=== PATIENT | male | born 1980 | race Caucasian/White ===

== ENCOUNTER 2017-10-08 07:53 | Inpatient (IN) | payer OTHER ==
[2017-10-08] MEDS ORDERED: NA CHLORIDE 0.9% 1,000 ML ONE ×2 (08:28→11:17)
[2017-10-08] MEDS ORDERED: LIDOCAINE 1% MPF 2 ML AMPULE ONE (08:50)
--- NOTE | 2017-10-08 09:00 | RAD REPORT ---
EXAM DESCRIPTION: Gsisel Single View10/08/2017 8:41 am CLINICAL HISTORY: Chest pain COMPARISON: 2008 FINDINGS: The lungs appear clear of acute infiltrate. The heart is normal size IMPRESSION: No acute abnormalities displayed
[2017-10-08 09:09] LABS: Absolute Lymphocytes (CBC) 1.9 K/uL (0.7-4.9); Absolute Monocytes 1.8 K/uL (0.1-1.3); Absolute Neutrophil 17.2 K/uL (1.8-8.0); Basophils % 0.3 % (0-1.3); Eosinophils % 0.3 % (0-4.4); Hematocrit 44.4 % (39.6-49.0); Lymphocytes % 8.9 % (15.3-44.8); MCH 28.3 pg (27.0-35.0); MCV 83.2 fL (80-100); MPV 9.4 fL (7.6-11.3); Monocytes % 8.7 % (3.3-12.3); RBC Red Blood Cell Count 5.34 M/uL (4.33-5.43)
[2017-10-08 09:18] LABS: Bicarbonate 24 mEq/L (21-31); Glucose Level 313 mg/dL (65-120); Potassium 4.5 mEq/L (3.6-5.0); Sodium Level 131 mEq/L (135-145)
[2017-10-08 09:19] LABS: BUN Blood Urea Nitrogen 18 mg/dL (6-20)
--- NOTE | 2017-10-08 10:32 | EDPHYS ---
Physician Documentation [facility] Name: Yuniel Adkins Age: 37 yrs Sex: Male : 1980 Arrival Date: 10/08/2017 Time: 07:56 Bed 14 Private MD: Korey Up R ED Physician Edilson Urias HPI: 10/08 08:42 This 37 yrs old Male presents to ER via Ambulatory with complaints of Flu rn Symptoms, Insect Bite. 08:42 the patient presents with a swollen area of the buttocks. Description: erythematous, rn swollen, warm. Onset: The symptoms/episode began/occurred 1 week(s) ago. Possible cause(s): unknown. Severity of symptoms: At their worst the symptoms were mild, in the emergency department the symptoms are unchanged. The patient has not experienced similar symptoms in the past. Reports noticed swelling to right buttocks 1 week ago, + chills and fatigue, no fever, + dark urine and feels weak. Spoke with [employer] and gave him tamiflu for possible flu. . Historical: - Allergies: 08:10 No Known Allergies; ss - Home Meds: 08:10 Tamiflu 75 mg Oral cap 1 cap once daily [Active]; "supposed to be taking blood pressure ss medication and metformin for diabetes" currently not taking medications [Active]; - PMHx: 08:10 Hypertension; Diabetes - NIDDM; ss - PSHx: 08:10 back sx; ss - Immunization history:: Adult Immunizations unknown. - Social history:: Smoking status: Patient/guardian denies using tobacco. - Ebola Screening: : Patient denies exposure to infectious person Patient denies travel to an Ebola-affected area in the 21 days before illness onset. - Family history:: not pertinent. - Hospitalizations: : No recent hospitalization is reported. ROS: 08:42 Constitutional: Negative for fever and weight loss, Eyes: Negative for injury, pain, rn redness, and discharge, Neck: Negative for injury, pain, and swelling, Cardiovascular: Negative for chest pain, palpitations, and edema, Respiratory: Negative for shortness of breath, cough, wheezing, and pleuritic chest pain, Abdomen/GI: Negative for abdominal pain, nausea, vomiting, diarrhea, and constipation, Back: Negative for injury and pain, MS/Extremity: Negative for injury and deformity, Skin: + swelling and redness right buttocks along inferior gluteal cleft with approx 6cm surrounding erythema and fluctuance. Neuro: Negative for headache,numbness, tingling, and seizure. Exam: 08:46 Constitutional: This is a well developed, well nourished patient who is awake, alert, rn and in no acute distress. Head/Face: Normocephalic, atraumatic. Eyes: Pupils equal round and reactive to light, extra-ocular motions intact. Lids and lashes normal. Conjunctiva and sclera are non-icteric and not injected. Cornea within normal limits. Periorbital areas with no swelling, redness, or edema. ENT: dry MM Cardiovascular: tachycardic, regular, no murmur Respiratory: Lungs have equal breath sounds bilaterally, clear to auscultation and percussion. No rales, rhonchi or wheezes noted. No increased work of breathing, no retractions or nasal flaring. Abdomen/GI: Soft, non-tender, with normal bowel sounds. No distension or tympany. No guarding or rebound. No evidence of tenderness throughout. Skin: + swelling and redness right buttocks along inferior gluteal cleft with approx 6cm surrounding erythema and fluctuance. Extends near to but does not involve anus. MS/ Extremity: Pulses equal, no cyanosis. Neurovascular intact. Full, normal range of motion. Equal circumference. Neuro: Awake and alert, GCS 15, oriented to person, place, time, and situation. Cranial nerves II-XII grossly intact. Motor strength 5/5 in all extremities. Sensory grossly intact. Cerebellar exam normal. Normal gait. Vital Signs: 08:10 BP 174 / 97; Pulse 116; Resp 16; Temp 98.3(TE); Pulse Ox 99% on R/A; Weight 120.2 kg; ss Height 5 ft. 11 in. (180.34 cm); Pain 6/10; 10:20 BP 162 / 88; Pulse 92; Resp 16; Temp 98.3; Pulse Ox 100% on R/A; Pain 6/10; sg 08:10 Body Mass Index 36.96 (120.20 kg, 180.34 cm) Lamar Coma Score: 10:20 Eye Response: spontaneous(4). Verbal Response: oriented(5). Motor Response: obeys sg commands(6). Total: 15. MDM: 08:11 Patient medically screened. rn 10:30 Differential diagnosis: abscess, cellulitis. Data reviewed: vital signs, nurses notes, external auditor test result(s), radiologic studies, plain films, and as a result, I will admit patient. Counseling: I had a detailed discussion with the patient and/or guardian regarding: the historical points, exam findings, and any diagnostic results supporting the discharge/admit diagnosis, lab results, radiology results, the need for further work-up and treatment in the hospital. Response to treatment: the patient's symptoms have mildly improved after treatment, and as a result, I will admit patient. Admission orders: after a detailed discussion of the patient's condition and case, the admit orders are written by me. ED course: Consulted dr acosta regarding abscess and cellulitis of right buttocks, need for admission, and hyperglycemia, will eval in ER if needs OR drainage. . 10/08 08:23 Order name: CBC with Diff rn 10/08 08:23 Order name: Basic Metabolic Panel; Complete Time: 09:21 rn 10/08 08:23 Order name: Blood Culture Adult (2) rn 10/08 08:23 Order name: Ketone, Serum; Complete Time: 09:21 rn 10/08 09:22 Order name: Manual Differential EDMS 10/08 10:49 Order name: Basic Metabolic Panel EDMS 10/08 08:24 Order name: XRAY Chest (1 view); Complete Time: 09:10 rn 10/08 10:49 Order name: Basic Metabolic Panel EDMS 10/08 10:49 Order name: CBC with Automated Diff EDMS 10/08 10:49 Order name: CBC with Automated Diff EDMS 10/08 08:23 Order name: IV Start; Complete Time: 08:24 rn 10/08 08:23 Order name: Glucose Level; Complete Time: 08:24 rn 10/08 08:23 Order name: Incision \\T\\ Drainage Setup; Complete Time: 08:24 rn 10/08 10:48 Order name: NPO; Complete Time: 11:01 rn 10/08 10:49 Order name: CONS Physician Consult EDMS 10/08 10:49 Order name: NPO EDMS Administered Medications: 08:53 Drug: NS 0.9% 1000 ml Route: IV; Rate: 1000 ml; Site: right antecubital; sg 08:54 Drug: Lidocaine (1 %) 1 vials {Note: medication administered by for I/D.} sg Volume: 20 ml; Route: Infiltration; 11:00 Drug: Zosyn 3.375 grams Route: IVPB; Infused Over: 60 mins; Site: right antecubital; sg 12:00 Follow up: Response: No adverse reaction; IV Status: Completed infusion sg Disposition: 10/08/17 10:32 Hospitalization ordered by Korey Up for Inpatient Admission. Preliminary diagnosis are Gluteal Abscess, Hyperglycemia, unspecified, Cellulitis of buttock. - Bed requested for Telemetry/MedSurg (Inpatient). - Status is Inpatient Admission. sg - Condition is Stable. - Problem is an ongoing problem. - Symptoms have improved. UTI on Admission? No Signatures: Dispatcher [employer] EDMS Salvador Owens RN RN sg Nieto, Roman, MD MD rn Smirch, Shelby, RN RN ss Corrections: (The following items were deleted from the chart) 08:46 08:42 Constitutional: Negative for fever and weight loss, Eyes: Negative for injury, rn pain, redness, and discharge, Neck: Negative for injury, pain, and swelling, Cardiovascular: Negative for chest pain, palpitations, and edema, Respiratory: Negative for shortness of breath, cough, wheezing, and pleuritic chest pain, Abdomen/GI: Negative for abdominal pain, nausea, vomiting, diarrhea, and constipation, Back: Negative for injury and pain, MS/Extremity: Negative for injury and deformity, Skin: + swelling and redness right buttocks along inferior gluteal cleft with approx 6cm surrounding erythema and fluctuance. Neuro: Negative for headache,numbness, tingling, and seizure, rn 09:44 08:46 Constitutional: This is a well developed, well nourished patient who is awake, rn alert, and in no acute distress. Head/Face: Normocephalic, atraumatic. Eyes: Pupils equal round and reactive to light, extra-ocular motions intact. Lids and lashes normal. Conjunctiva and sclera are non-icteric and not injected. Cornea within normal limits. Periorbital areas with no swelling, redness, or edema. ENT: dry MM Cardiovascular: tachycardic, regular, no murmur Respiratory: Lungs have equal breath sounds bilaterally, clear to auscultation and percussion. No rales, rhonchi or wheezes noted. No increased work of breathing, no retractions or nasal flaring. Abdomen/GI: Soft, non-tender, with normal bowel sounds. No distension or tympany. No guarding or rebound. No evidence of tenderness throughout. Skin: + swelling and redness right buttocks along inferior gluteal cleft with approx 6cm surrounding erythema and fluctuance. MS/ Extremity: Pulses equal, no cyanosis. Neurovascular intact. Full, normal range of motion. Equal circumference. Neuro: Awake and alert, GCS 15, oriented to person, place, time, and situation. Cranial nerves II-XII grossly intact. Motor strength 5/5 in all extremities. Sensory grossly intact. Cerebellar exam normal. Normal gait. rn 11:12 10:32 Hospitalization Ordered by Korey Up MD for Inpatient Admission. Preliminary sg diagnosis is Gluteal Abscess; Hyperglycemia, unspecified; Cellulitis of buttock. Bed requested for Telemetry/MedSurg (Inpatient). Status is Inpatient Admission. Condition is Stable. Problem is an ongoing problem. Symptoms have improved. UTI on Admission? No. rn
--- NOTE | 2017-10-08 10:32 | ER ---
Nurse's Notes [facility] Name: Yuniel Adkins Age: 37 yrs Sex: Male : 1980 Arrival Date: 10/08/2017 Time: 07:56 Bed 14 Private MD: Korey Up R Diagnosis: Gluteal Abscess;Hyperglycemia, unspecified;Cellulitis of buttock Presentation: 10/08 08:06 Presenting complaint: Patient states: intermittent fatigue, chills and body aches x 2 ss days. Pt reports he saw a [facility] that gave him tamiflu for possible flu. Pt states, "he told me if it wasn't better in a few days to come be seen." Pt also reports abscess to gluteal cleft x 1 week. Transition of care: patient was not received from another setting of care. Onset of symptoms is unknown. Risk Assessment: Do you want to hurt yourself or someone else? Patient reports no desire to harm self or others. Initial Sepsis Screen: Does the patient meet any 2 criteria? HR > 90 bpm. Does the patient have a suspected source of infection? Yes: Skin breakdown/wound. Care prior to arrival: None. 08:06 Method Of Arrival: Ambulatory ss 08:06 Acuity: LUKE 4 ss Triage Assessment: 08:20 Bite description: unsure if bitten by anything, but reports a "bump that is red and hot sg to touch". General: Appears in no apparent distress. comfortable, well groomed, well developed, well nourished, Behavior is calm, cooperative, appropriate for age. Historical: - Allergies: 08:10 No Known Allergies; ss - Home Meds: 08:10 Tamiflu 75 mg Oral cap 1 cap once daily [Active]; "supposed to be taking blood pressure ss medication and metformin for diabetes" currently not taking medications [Active]; - PMHx: 08:10 Hypertension; Diabetes - NIDDM; ss - PSHx: 08:10 back sx; ss - Immunization history:: Adult Immunizations unknown. - Social history:: Smoking status: Patient/guardian denies using tobacco. - Ebola Screening: : Patient denies exposure to infectious person Patient denies travel to an Ebola-affected area in the 21 days before illness onset. - Family history:: not pertinent. - Hospitalizations: : No recent hospitalization is reported. Screenin:00 Abuse screen: Denies threats or abuse. Denies injuries from another. Nutritional sg screening: No deficits noted. Tuberculosis screening: No symptoms or risk factors identified. Never had TB. Fall Risk None identified. Assessment: 08:20 General: Appears in no apparent distress. comfortable, well groomed, well developed, sg well nourished, Behavior is calm, cooperative, appropriate for age. Pain: Complains of pain in left gluteal, left gluteal fold Pain does not radiate. Quality of pain is described as tender. Neuro: Level of Consciousness is awake, alert, obeys commands, Oriented to person, place, time, situation, Speech is normal, Facial symmetry appears normal. Cardiovascular: Heart tones S1 S2 present Capillary refill is brisk in bilateral fingers Patient's skin is warm and dry. Chest pain is denied. Respiratory: Airway is patent Respiratory effort is even, unlabored, Respiratory pattern is regular, symmetrical, Breath sounds are clear Denies cough, shortness of breath labored breathing, pain with respiration, pain with cough, pain with movement, air hunger. GI: Abdomen is round non-distended, obese, Bowel sounds present X 4 quads. Reports nausea. : No signs and/or symptoms were reported regarding the genitourinary system. EENT: No signs and/or symptoms were reported regarding the EENT system. Derm: Skin is intact, is healthy with good turgor, Skin is dry, Skin is pink, warm \\T\\ dry. Skin temperature is warm Abscess located on left gluteal fold is quarter sized, has no drainage, is hot to touch, is red, is raised. Musculoskeletal: No signs and/or symptoms reported regarding the musculoskeletal system. 10:00 Reassessment: Patient appears in no apparent distress at this time. Patient and/or sg family updated on plan of care and expected duration. Pain level reassessed. Patient is alert, oriented x 3, equal unlabored respirations, skin warm/dry/pink. awaiting dispo, awaiting new orders, pt reports nausea is now gone. 11:04 Reassessment: at bedside evaluating pt at this time. sg Vital Signs: 08:10 BP 174 / 97; Pulse 116; Resp 16; Temp 98.3(TE); Pulse Ox 99% on R/A; Weight 120.2 kg; ss Height 5 ft. 11 in. (180.34 cm); Pain 6/10; 10:20 BP 162 / 88; Pulse 92; Resp 16; Temp 98.3; Pulse Ox 100% on R/A; Pain 6/10; sg 08:10 Body Mass Index 36.96 (120.20 kg, 180.34 cm) ss Lamar Coma Score: 10:20 Eye Response: spontaneous(4). Verbal Response: oriented(5). Motor Response: obeys sg commands(6). Total: 15. ED Course: 07:56 Patient arrived in ED. sb2 07:57 Korey Up MD is Private Physician. sb2 08:07 Triage completed. ss 08:10 Arm band placed on right wrist. ss 08:11 Edilson Urias MD is Attending Physician. rn 08:15 Initial lab(s) drawn, by me, sent to lab. First set of blood cultures drawn by me. sg 08:17 Salvador Owens, RN is Primary Nurse. sg 08:30 Assist provider with I \\T\\ D: of an abscess on Set up I\\T\\D tray. Second set of blood sg cultures drawn by me. Inserted saline lock: 20 gauge in right antecubital area, using aseptic technique. Blood collected. 08:40 X-ray completed. Portable x-ray completed in exam room. Patient tolerated procedure kp1 well. 08:41 XRAY Chest (1 view) In Process Unspecified. EDMS 09:00 Patient has correct armband on for positive identification. Bed in low position. Call sg light in reach. Side rails up X2. telemetry monitor on. Pulse ox on. NIBP on. 09:21 Notified ED physician of a critical lab result(s). WBC-21. sv 10:31 Korey Up MD is Hospitalizing Provider. rn 11:00 Patient admitted, IV remains in place. intact, No redness/swelling at site. Pressure sg dressing applied. Administered Medications: 08:53 Drug: NS 0.9% 1000 ml Route: IV; Rate: 1000 ml; Site: right antecubital; sg 08:54 Drug: Lidocaine (1 %) 1 vials {Note: medication administered by for I/D.} sg Volume: 20 ml; Route: Infiltration; 11:00 Drug: Zosyn 3.375 grams Route: IVPB; Infused Over: 60 mins; Site: right antecubital; sg 12:00 Follow up: Response: No adverse reaction; IV Status: Completed infusion Outcome: 10:32 Decision to Hospitalize by Provider. rn 11:00 Admitted to OR accompanied by nurse, via stretcher, with chart. sg 11:00 Condition: stable 11:00 Instructed on the need for admit, safety practices, Demonstrated understanding of instructions. 11:12 Patient left the ED. sg Signatures: Dispatcher [employer] Tamara Fuentes RN RN sv Gay, Steven, RN RN sg Edilson Urias MD MD rn Smirch, Shelby, RN RN ss Poole, Kathy kp1 Marisabel Major sb2 Corrections: (The following items were deleted from the chart) 08:16 08:06 Initial Sepsis Screen: Does the patient meet any 2 criteria? No. Patient's ss initial sepsis screen is negative. Does the patient have a suspected source of infection? Yes: Skin breakdown/wound ss
[2017-10-08] MEDS ORDERED: ACETAMINOPHEN 500 MG TAB PO PRN (10:45)
[2017-10-08] MEDS ORDERED: MORPHINE 4 MG/ML SYR IV PRN (10:45)
[2017-10-08] MEDS ORDERED: ONDANSETRON 4 MG/2 ML VIAL IV PRN (10:45)
[2017-10-08] MEDS ORDERED: PIPER/TAZO/NS 3.375gm 3.375 GM/100 ML BAG ONE (10:49)
[2017-10-08] MEDS ORDERED: INSULIN -REGULAR HUMAN 50 UNIT/0.5 ML ML ONE (10:49)
[2017-10-08] MEDS ORDERED: VANCOMYCIN 1 GM/250 ML BAG ONE (10:50)
[2017-10-08] MEDS ORDERED: FENTANYL CITR 100 MCG/2 ML ONE (11:11)
[2017-10-08] MEDS ORDERED: LIDOCAINE 1% MPF 5 ML VIAL ONE (11:11)
[2017-10-08] MEDS ORDERED: PROPOFOL 200 MG/20 ML VIAL IV ONE (11:11)
[2017-10-08] MEDS ORDERED: MIDAZOLAM HCL 2 MG/2 ML INJ ONE (11:11)
[2017-10-08] MEDS ORDERED: BUPIVACA 0.25%/EPI 0.0005%/PF 30 ML VIAL ONE (11:16)
[2017-10-08] MEDS ORDERED: ONDANSETRON HCL 40 MG/20 ML VIAL ONE (11:46)
--- NOTE | 2017-10-08 11:47 | P.OP ---
Contract Analyst: Jose Vela Preoperative diagnosis: Right Buttock Abscess Postoperative diagnosis: Right Buttock Abscess Primary procedure: incision and drainage of Right Buttock Abscess Anesthesia: GETA + Local Estimated blood loss: <5cc Specimen: cultures sent Findings: multiloculated abscess ~5 cm Complications: None Transferred to: Recovery Room Condition: Good
[2017-10-08] MEDS ORDERED: VANCOMYCIN/NS 1 gm 1 GM/250 ML BAG IV ONE (12:00)
[2017-10-08 12:18] LABS: Blood Morphology Comment NOT SEEN (NOT SEEN); Platelet Estimate ADEQ
--- NOTE | 2017-10-08 13:32 | OP ---
Date of Procedure: 10/08/2017 Surgeon: Ed Brown MD, Site Controller: Delores Adame. Preoperative Diagnosis: Right buttock abscess. Postoperative Diagnosis: Right buttock abscess. Procedure Performed: Incision and drainage, right buttock abscess. Anesthesia: General endotracheal plus local with 0.25% Marcaine with epinephrine. Estimated Blood Loss: Less than 5 cc. Specimen: Culture sent, both aerobic and anaerobic speciations. Findings: Multiloculated abscess approximately 5 cm inside of the right buttock. Complications: None. Disposition: Transferred to recovery room in good condition. Procedure In Detail: After informed was obtained, the patient was brought to the operating room, pre pped and draped in the usual sterile fashion. After adequate anesthesia was achieved, an area of the right buttock was anesthetized with 0.25% Marcaine with epinephrine, sharply incised for approximate ly 3-4 cm, and immediately purulent fluid was encountered. This was cultured at this time and I lisbeth de examined the area and found it to be multiloculated abscess approximately 5 cm in size. After this was complete, the all loculations were removed. The area was copiously irrigated. Hemostasis w as achieved quite easily without any additional hemostatic maneuvers. The area was irrigated and dri ed once again and packed with half-inch iodoform packing. Sterile dressing was placed over top. The patient tolerated the procedure well without evidence of complication and transferred to the PACU in good condition. All counts were correct at the end of the case. KEREN/EILEEN Voice ID: [id number] Report ID: [id number]
[2017-10-08] MEDS ORDERED: Morphine 2 MG/2 ML SYR IV PRN (13:59)
[2017-10-08] MEDS: D5.45NS W/KCL 20MEQ 1,000 ML IV SCH ×2 (15:20→21:00)
--- NOTE | 2017-10-08 15:32 | CON ---
Date of Consultation: 10/08/2017 Brief History Of Present Illness: The patient is a 37-year-old male who presents with approximately 3-day history of swelling in his right gluteal region abutting the perianal area. There is a normal bridge of tissue between the anus and this abscess, however, on his right gluteus, but it is near the ischial tuberosity. He has not had similar episodes before in the past. It got progressively worse , more tender, and as such he came to the emergency room. He has no constitutional complaints. No o ther complaints or symptoms at this time other than the above described. Past Medical History: Significant for hypertension, diabetes. Past Surgical History: He has had spinal stenosis, repair of his lumbar spine. Allergies: NO KNOWN DRUG ALLERGIES. Medications: He denies taking any medications. Social History: He denies smoking, alcohol, recreational drug use. He works for the [employer]. Family History: Reviewed and noncontributory. Review of Systems: A 10-point review of systems other than HPI, denies. Physical Examination: At the time of my examination General: He is awake, alert, oriented Psychiatric: Appropriate. Conversive. HEENT: Normocephalic sclerae anicteric. Mucous membranes moist, oropharynx clear. Neck: Supple. No JVD. Chest: Normal expansion and excursion. Cardiovascular: Regular rate and rhythm Pulmonary: Clear to auscultation bilaterally. Abdomen: Soft, nontender, nondistended. Focused examination of the buttock area shows a fluctuant a bscess of the right buttock near the ischial tuberosity. There is surrounding cellulitis to this are a and induration. The remainder of the examination is essentially normal. Laboratory Data: Reveals a white blood cell count of 21.0, hemoglobin is 15.0, hematocrit of 44.4, p latelet count is 294, neutrophils are 81%. His sodium is 131, potassium 4.5, chloride 96, carbon latoya xide 24, BUN 18, creatinine 0.9, glucose is 313. He had a chest x-ray, which showed no acute abnorma lities. Assessment And Plan: This is a 37-year-old male who comes in with signs and symptoms of right buttoc k abscess. 1.IV fluid hydration. 2.Antibiotic coverage with Zosyn and vancomycin. 3.I have explained the risks, benefits, and alternatives of incision and drainage of this abscess an d need for ongoing wound care after drainage of this abscess is completed. I have explained all the risks, benefits, and alternatives including, but not limited to bleeding, infection, damage to the fernandes rrounding tissue need for further operating procedures as descried above. The patient agrees to proce ed as indicated. Thank you for this interesting consult. VIC Voice ID: [id number] Report ID: [id number]
[2017-10-08] MEDS: PIPER/TAZO/NS 3.375gm 3.375 GM/100 ML BAG IVPB SCH (16:15)
[2017-10-08] MEDS ORDERED: D50W 25 GM/50 ML SYRINGE IV PRN (16:47)
[2017-10-08] MEDS ORDERED: GLUCAGON 1 MG/VIAL IM PRN (16:47)
[2017-10-08] MEDS: METFORMIN HCL 500 MG TAB PO SCH (17:07)
[2017-10-08] MEDS: INSULIN -REGULAR HUMAN 50 UNIT/0.5 ML ML SQ SCH (21:42)
[2017-10-08 23:03] LABS: Urine Appearance CLEAR; Urine Bilirubin NEGATIVE (NEG); Urine Blood 2+ (NEG); Urine Color YELLOW; Urine Glucose 3+ (NEG); Urine Protein NEGATIVE (NEG); Urine Specific Gravity 1.025 (1.005-1.030); Urine pH 5.5 (5.0-7.0)
[2017-10-08 23:05] LABS: Urine Microscopic Reflex ORDER UMIC
[2017-10-08 23:13] LABS: Urine Bacteria <20 /HPF (NONE SEEN); Urine Culture Reflex Order NOT NEEDED; Urine RBC <5 /HPF (NONE SEEN)
[2017-10-09] MEDS: VANCOMYCIN 2 GM in NA CHLORIDE 0.9% 500 ML IVPB SCH ×2 (00:17→12:17)
[2017-10-09] MEDS: PIPER/TAZO/NS 3.375gm 3.375 GM/100 ML BAG IVPB SCH ×2 (01:59→08:42)
[2017-10-09] MEDS: D5.45NS W/KCL 20MEQ 1,000 ML IV SCH (05:54)
[2017-10-09 06:23] LABS: Absolute Lymphocytes (CBC) 2.8 K/uL (0.7-4.9); Absolute Neutrophil 12.9 K/uL (1.8-8.0); Basophils % 0.2 % (0-1.3); Eosinophils % 1.4 % (0-4.4); Hematocrit 37.4 % (39.6-49.0); Lymphocytes % 15.7 % (15.3-44.8); MCH 28.2 pg (27.0-35.0); MCV 83.4 fL (80-100); MPV 9.3 fL (7.6-11.3); Monocytes % 11.1 % (3.3-12.3); RBC Red Blood Cell Count 4.48 M/uL (4.33-5.43)
[2017-10-09 06:31] LABS: BUN Blood Urea Nitrogen 13 mg/dL (6-20); Bicarbonate 26 mEq/L (21-31); Glucose Level 256 mg/dL (65-120); Potassium 4.5 mEq/L (3.6-5.0); Sodium Level 131 mEq/L (135-145)
[2017-10-09] MEDS ORDERED: MORPHINE 4 MG/ML SYR IV PRN (07:29)
--- NOTE | 2017-10-09 08:37 | P.PN ---
Subjective Date of Service: 10/09/17 Subjective: Improving (Pain improved) Physical Examination - Vital Signs Temperature: 97.7 F Blood Pressure: 119/67 Pulse: 83 Respirations: 18 Pulse Ox (%): 97 - Physical Exam General: Alert, In no apparent distress Integumentary: Other (wound packed well) - Studies Laboratory Data (last 24 hrs) 10/08/17 08:30: Sodium 131 L, Potassium 4.5, BUN 18, Creatinine 0.93, Glucose 313 H 10/08/17 08:30: WBC 21.0 H*, Hgb 15.1, Hct 44.4, Plt Count 294 Assessment And Plan - Current Problems (Diagnosis) (1) Abscess of buttock, right Current Visit: Yes Status: Acute Plan: - Daily dressing changes with packing - follow up in 2 weeks - light duty at work, no strenous
[2017-10-09] MEDS: METFORMIN HCL 500 MG TAB PO SCH (08:40)
[2017-10-09] MEDS: INSULIN -REGULAR HUMAN 50 UNIT/0.5 ML ML SQ SCH ×2 (08:40→12:17)
--- NOTE | 2017-10-09 12:07 | HP ---
Date of Admission: 10/08/2017 Chief Complaint: Pain, right buttock. History Of Present Illness: A 37-year-old male was brought to the emergency room because of pain. H e was found to have an abscess with a white count of 21,000. The patient is admitted. There is no h istory of trauma. Past Medical History: The patient is known to have diabetes. Medications: He took medications in the past; however, he is not taking any medicines currently. Family History: Diabetes present. Personal History: Nonsmoker. Home Medicines: None. Review of Systems: No history of GI symptoms. No history of rectal bleeding. Physical Examination: General: Revealed a 37-year-old obese male, in moderate pain. HEENT: Negative. Neck: Supple. JVD negative. Chest: Clear. Heart: Regular. Abdomen: Soft. Extremities: There is a large area of induration and abscess formation of the right buttock. Laboratory Data: White count 21,000. Blood sugar at admission was 313. BUN and creatinine normal. Assessment: 1.Cellulitis and abscess, right buttock. 2.Type 2 diabetes, poorly controlled. 3.Obesity. Plan: The patient had incision and drainage done. He is on vancomycin and Zosyn. The patient's blo od sugars are controlled better, but still elevated today. The patient will be rechecked this p.m. SKIP/EILEEN Voice ID: [id number]
--- NOTE | 2017-10-09 18:12 | PN ---
The patient's induration is much better. His temperature is 97.3; however, his white count is still elevated to 18. I spoke to him regarding his care. He wants to go home. I told him that there is a chance that infection may recur. The option of continuing IV antibiotic overnight and repeating CBC was explained; however, he insists on going home. He will be discharged on doxycycline and his cult ures will be followed. The patient is due to have a home health for his dressing change. SKIP/EILEEN Voice ID: [id number] Report ID: [id number]
== END 2017-10-09 17:36 | disposition home health service (06) | DRG 603 ==
LOC: ER 07:53 → ERHOLD 10:43 → 2ND 13:16
PROVIDERS: ADMIT Internal Medicine; ATTEND Internal Medicine
PROC: 0H98XZZ Drainage of Buttock Skin, External Approach (ICD-10-PCS; principal; 2017-10-08 10:45)
DX: L03.317 Cellulitis of buttock (principal); E11.65 Type 2 diabetes mellitus with hyperglycemia; E66.9 Obesity, unspecified; Z68.37 Body mass index [BMI] 37.0-37.9, adult
CPT/HCPCS: 36415; 71045; 80048; 81003; 81015; 82009; 82962; 85025; 87040; 87070; 87075; 87077; 87186; 87205; 96365; 99285; J2001; J2250; J2405; J2543; J3010; J3370; J7030

== ENCOUNTER 2018-03-30 10:09 | Emergency (ER) | payer OTHER ==
[2018-03-30] MEDS ORDERED: ONDANSETRON 4 MG (ODT) TAB ONE (11:26)
[2018-03-30] MEDS ORDERED: NA CHLORIDE 0.9% 1,000 ML ONE (12:08)
--- NOTE | 2018-03-30 13:14 | EDPHYS ---
Physician Documentation [facility] Name: Yuniel Adkins Age: 37 yrs Sex: Male : 1980 Arrival Date: 03/30/2018 Time: 10:13 Bed 12 Private MD: Korey Up R ED Physician Edilson Urias HPI: 03/30 11:53 This 37 yrs old Male presents to ER via Ambulatory with complaints of Flu jmm Symptoms. 11:53 The patient presents to the emergency department with nausea, vomiting, diarrhea. jmm Onset: The symptoms/episode began/occurred acutely, this morning. Possible causes: unknown. Associated signs and symptoms: Pertinent negatives: fever. This is a 37 year old male with a history of dm, htn that presents with body aches, vomiting, diarrhea, cough beginning earlier this morning. Patient denies infectious contacts. Denies recent travel. Denies recent abx use. . Historical: - Allergies: 10:42 No Known Allergies; iw - Home Meds: 10:42 metformin 1,000 mg Oral TG24 1 tab 2 times per day [Active]; iw - PMHx: 10:42 Diabetes - NIDDM; Hypertension; iw - PSHx: 10:42 back sx; iw - Immunization history:: Adult Immunizations not up to date. - Social history:: Smoking status: Patient/guardian denies using tobacco. - Ebola Screening: : Patient negative for fever greater than or equal to 101.5 degrees Fahrenheit, and additional compatible Ebola Virus Disease symptoms Patient denies exposure to infectious person Patient denies travel to an Ebola-affected area in the 21 days before illness onset No symptoms or risks identified at this time. ROS: 12:05 Eyes: Negative for injury, pain, redness, and discharge, ENT: Negative for injury, jmm pain, and discharge, Cardiovascular: Negative for chest pain, palpitations, and edema. 12:05 Back: Negative for injury and pain, : Negative for injury, bleeding, discharge, and swelling, MS/Extremity: Negative for injury and deformity, Skin: Negative for injury, rash, and discoloration, Neuro: Negative for headache, weakness, numbness, tingling, and seizure. 12:05 Constitutional: Positive for body aches. 12:05 Respiratory: Positive for cough. 12:05 Abdomen/GI: Positive for abdominal pain, nausea and vomiting, diarrhea. 12:05 All other systems are negative. Exam: 12:05 Head/Face: atraumatic. ENT: Moist Mucus Membranes Neck: Trachea midline, Supple jm Chest/axilla: Normal chest wall appearance and motion. Cardiovascular: Regular rate and rhythm. No edema appreciated Respiratory: Normal respirations, no respiratory distress appreciated Abdomen/GI: Non distended, soft Back: Normal ROM 12:05 Skin: General appearance color normal MS/ Extremity: Moves all extremities, no obvious deformities appreciated, no edema noted to the lower extremities Neuro: Awake and alert, normal gait Psych: Behavior is normal, Mood is normal, Patient is cooperative and pleasant 12:05 Constitutional: The patient appears in no acute distress, alert, awake. 12:05 Abdomen/GI: Inspection: abdomen appears normal, Bowel sounds: normal, Palpation: soft, in all quadrants, nontender. Vital Signs: 10:42 BP 148 / 89; Pulse 99; Resp 18; Temp 98.3(TE); Pulse Ox 100% on R/A; Weight 122.47 kg; iw Height 5 ft. 11 in. (180.34 cm); Pain 6/10; 10:42 Body Mass Index 37.66 (122.47 kg, 180.34 cm) iw MDM: 11:09 Patient medically screened. [facility] 12:55 Data reviewed: vital signs, nurses notes, lab test result(s). [facility] 13:11 Data interpreted: Pulse oximetry: on room air is 100 %. Interpretation: normal. [facility] Counseling: I had a detailed discussion with the patient and/or guardian regarding: the historical points, exam findings, and any diagnostic results supporting the discharge/admit diagnosis, lab results, the need for outpatient follow up, to return to the emergency department if symptoms worsen or persist or if there are any questions or concerns that arise at home. ED course: Patient states feeling better and is now tolerating PO after IVF. Patients abdomen is soft and non tender to palpation. Patient given early appendicitis return precautions. Symptoms appear most likely due to a viral illness. Patient understood return precautions and agrees with the plan of care. . 03/30 10:47 Order name: Flu; Complete Time: 11:22 03/30 11:54 Order name: BMP; Complete Time: 13:05 [facility] 03/30 11:10 Order name: Urine Dipstick-Ancillary (obtain specimen); Complete Time: 12:05 [facility] 03/30 12:12 Order name: Urine Dipstick--Ancillary (enter results); Complete Time: 17:18 03/30 11:54 Order name: Saline Lock; Complete Time: 12:05 [facility] 03/30 13:05 Order name: PO challenge; Complete Time: 13:15 [facility] Administered Medications: 11:24 Not Given (Patient Refused): Zofran 4 mg PO once ss 12:16 Drug: NS 0.9% 1000 ml Route: IV; Rate: 1 bolus; Site: right antecubital; ss 13:28 Follow up: IV Status: Completed infusion ss Disposition: 16:39 Co-signature as Attending Physician, Edilson Urias MD. rn Disposition: 03/30/18 13:13 Discharged to Home. Impression: Vomiting, Diarrhea, unspecified. - Condition is Stable. - Discharge Instructions: Food Choices to Help Relieve Diarrhea, Adult, Nausea and Vomiting, Adult. - Prescriptions for Zofran ODT 4 mg Oral tablet,disintegrating - take 1 tablet by ORAL route every 4-6 hours; 20 tablet. - Work release form, Medication Reconciliation Form, Thank You Letter, Antibiotic Education, Prescription Opioid Use form. - Follow up: Korey Up MD; When: 2 - 3 days; Reason: Recheck today's complaints, Continuance of care, Re-evaluation by your physician. Signatures: Dispatcher [employer] EDMS Maikol Winter PA PA jmm Williams, Irene, RN RN iw Nieto, Roman, MD MD rn [facility] Hospital[facility] Beth RN RN Corrections: (The following items were deleted from the chart) 12:06 11:53 This is a 37 year old male with a history of dm, htn that presents . [facility] 13:28 13:13 03/30/2018 13:13 Discharged to Home. Impression: Vomiting; Diarrhea, unspecified. ss Condition is Stable. Forms are Medication Reconciliation Form, Thank You Letter, Antibiotic Education, Prescription Opioid Use. Follow up: Korey Up; When: 2 - 3 days; Reason: Recheck today's complaints, Continuance of care, Re-evaluation by your physician. [facility]
--- NOTE | 2018-03-30 13:14 | ER ---
Nurse's Notes [facility] Name: Yuniel Adkins Age: 37 yrs Sex: Male : 1980 Arrival Date: 03/30/2018 Time: 10:13 Bed 12 Private MD: Korey Up R Diagnosis: Vomiting;Diarrhea, unspecified Presentation: 03/30 10:41 Presenting complaint: Patient states: yesterday had chills, body aches, pain behind iw eyes, denies fever. Transition of care: patient was not received from another setting of care. Onset of symptoms was March 30, 2018. Risk Assessment: Do you want to hurt yourself or someone else? Patient reports no desire to harm self or others. Initial Sepsis Screen: Does the patient meet any 2 criteria? No. Patient's initial sepsis screen is negative. Does the patient have a suspected source of infection? No. Patient's initial sepsis screen is negative. Care prior to arrival: None. 10:41 Method Of Arrival: Ambulatory iw 10:41 Acuity: LUKE 4 iw Historical: - Allergies: 10:42 No Known Allergies; iw - Home Meds: 10:42 metformin 1,000 mg Oral TG24 1 tab 2 times per day [Active]; iw - PMHx: 10:42 Diabetes - NIDDM; Hypertension; iw - PSHx: 10:42 back sx; iw - Immunization history:: Adult Immunizations not up to date. - Social history:: Smoking status: Patient/guardian denies using tobacco. - Ebola Screening: : Patient negative for fever greater than or equal to 101.5 degrees Fahrenheit, and additional compatible Ebola Virus Disease symptoms Patient denies exposure to infectious person Patient denies travel to an Ebola-affected area in the 21 days before illness onset No symptoms or risks identified at this time. Screenin:24 Abuse screen: Denies threats or abuse. Denies injuries from another. Nutritional ss screening: No deficits noted. Tuberculosis screening: No symptoms or risk factors identified. Never had TB. Fall Risk None identified. Assessment: 11:24 Reassessment: Pt states, "I just peed before I came here, so I don't think I can go ss just yet." Pt verbalizes understanding importance of giving urine sample and reports that he will try in approx 10 minutes. Denies nausea at this time, refused oral Zofran. 13:25 Reassessment: Patient appears in no apparent distress at this time. Patient and/or ss family updated on plan of care and expected duration. Pain level reassessed. Patient is alert, oriented x 3, equal unlabored respirations, skin warm/dry/pink. Pt drank approx 120 mL of water. Vital Signs: 10:42 BP 148 / 89; Pulse 99; Resp 18; Temp 98.3(TE); Pulse Ox 100% on R/A; Weight 122.47 kg; iw Height 5 ft. 11 in. (180.34 cm); Pain 6/10; 10:42 Body Mass Index 37.66 (122.47 kg, 180.34 cm) iw ED Course: 10:13 Patient arrived in ED. sb2 10:13 Korey Up MD is Private Physician. sb2 10:42 Triage completed. iw 10:42 Arm band placed on. iw 10:45 Maikol Winter PA is PHCP. [facility] 10:45 Edilson Urias MD is Attending Physician. [facility] 10:47 Mary Beth Sellers, JAKE is Primary Nurse. ss 10:55 Flu Sent. ss 11:24 Patient has correct armband on for positive identification. Bed in low position. Call ss light in reach. 12:16 Inserted saline lock: 20 gauge in right antecubital area, using aseptic technique. ss Blood collected. 13:12 Korey Up MD is Referral Physician. [facility] 13:25 No provider procedures requiring assistance completed. IV discontinued, intact, ss bleeding controlled, No redness/swelling at site. Pressure dressing applied. Administered Medications: 11:24 Not Given (Patient Refused): Zofran 4 mg PO once ss 12:16 Drug: NS 0.9% 1000 ml Route: IV; Rate: 1 bolus; Site: right antecubital; ss 13:28 Follow up: IV Status: Completed infusion ss Outcome: 13:13 Discharge ordered by . [facility] 13:25 Discharged to home ambulatory. ss 13:25 Condition: good 13:25 Discharge instructions given to patient, family, Instructed on discharge instructions, follow up and referral plans. medication usage, Demonstrated understanding of instructions, follow-up care, medications, Prescriptions given X 1. 13:28 Patient left the ED. ss Signatures: Maikol Winter PA PA jmm Williams, Irene, RN RN Mary Beth Osei, RN RN ss Marisabel Major sb2
[2018-03-30 13:24] LABS: Urine Blood 2+ (NEG); Urine Glucose TRACE (NEG); Urine Protein 1+ (NEG); Urine Specific Gravity 1.025 (1.005-1.030); Urine pH 5.5 (5.0-7.0)
== END 2018-03-30 13:28 | disposition home or self-care (01) ==
LOC: ER 10:09
DX: R11.10 Vomiting, unspecified (principal); R19.7 Diarrhea, unspecified; E11.9 Type 2 diabetes mellitus without complications; Z79.84 Long term (current) use of oral hypoglycemic drugs
CPT/HCPCS: 36415; 80048; 81003; 87804; 96360; 99284; J7030

== ENCOUNTER 2018-09-05 21:26 | Inpatient (IN) | payer OTHER ==
[2018-09-05 23:24] LABS: Absolute Lymphocytes (CBC) 2.9 K/uL (0.7-4.9); Basophils % 0.8 % (0-1.3); Hematocrit 41.3 % (39.6-49.0); Lymphocytes % 28.1 % (15.3-44.8); MPV 8.6 fL (7.6-11.3); Monocytes % 9.6 % (3.3-12.3); RBC Red Blood Cell Count 4.99 M/uL (4.33-5.43)
[2018-09-05] MEDS ORDERED: NA CHLORIDE 0.9% 1,000 ML ONE (23:32)
[2018-09-05] MEDS ORDERED: TETANUS & DIPHTHERIA TOX,ADULT 0.5 ML VIAL ONE (23:32)
[2018-09-05 23:41] LABS: Albumin 3.7 g/dL (3.4-5.0); Bilirubin Total 0.7 mg/dL (0.2-1.0); Protein, Total 7.7 g/dL (6.4-8.2)
[2018-09-06] MEDS ORDERED: PIPER/TAZO/NS 3.375gm 3.375 GM/100 ML BAG ONE (00:37)
[2018-09-06] MEDS ORDERED: NA CHLORIDE 0.9% 1,000 ML ONE (00:37)
[2018-09-06] MEDS ORDERED: LIDOCAINE 1% MPF 5 ML VIAL ONE (00:38)
[2018-09-06] MEDS ORDERED: BUPIVACAINE 0.5% PF 10 ML VIAL ONE (00:58)
--- NOTE | 2018-09-06 01:18 | ER ---
Nurse's Notes [facility] Name: Yuniel Adkins Age: 38 yrs Sex: Male : 1980 Arrival Date: 09/05/2018 Time: 21:28 Bed 30 Private MD: Korey Up R Diagnosis: Cutaneous abscess of right lower limb;Cellulitis of right lower limb Presentation: 09/05 21:37 Presenting complaint: Patient states: I have an abscess on my right groin area. I have ed1 been trying to take care of it at home but it seems to be getting worse because it is changing colors. Transition of care: patient was not received from another setting of care. Onset of symptoms was August 31, 2018. Risk Assessment: Do you want to hurt yourself or someone else? Patient reports no desire to harm self or others. Initial Sepsis Screen: Does the patient meet any 2 criteria? No. Patient's initial sepsis screen is negative. Does the patient have a suspected source of infection? No. Patient's initial sepsis screen is negative. Care prior to arrival: Medication(s) given: Motrin. 21:37 Method Of Arrival: Ambulatory ed1 21:37 Acuity: LUKE 3 ed1 Triage Assessment: 21:40 General: Appears in no apparent distress. Behavior is calm, cooperative. Pain: ed1 Complains of pain in medial aspect of right thigh Pain currently is 2 out of 10 on a pain scale. Historical: - Allergies: 21:40 No Known Allergies; ed1 - Home Meds: 21:40 None [Active]; ed1 - PMHx: 21:40 Diabetes - NIDDM; Hypertension; ed1 - PSHx: 21:40 Back surgery; I\T\D; ed1 - Immunization history:: Adult Immunizations up to date. - Social history:: Smoking status: Patient/guardian denies using tobacco. - Ebola Screening: : Patient negative for fever greater than or equal to 101.5 degrees Fahrenheit, and additional compatible Ebola Virus Disease symptoms Patient denies exposure to infectious person Patient denies travel to an Ebola-affected area in the 21 days before illness onset No symptoms or risks identified at this time. Screenin:45 Abuse screen: Denies threats or abuse. Denies injuries from another. Nutritional ca1 screening: No deficits noted. Tuberculosis screening: No symptoms or risk factors identified. Fall Risk None identified. Assessment: 22:45 General: Appears in no apparent distress. comfortable, Behavior is calm, cooperative, ca1 appropriate for age. Pain: Complains of pain in right inner thigh Pain does not radiate. Pain currently is 2 out of 10 on a pain scale. Pain began 2-3 days ago. Neuro: Level of Consciousness is awake, alert, obeys commands, Oriented to person, place, time, situation. Cardiovascular: Heart tones S1 S2 present Capillary refill < 3 seconds Patient's skin is warm and dry. Respiratory: Airway is patent Respiratory effort is even, unlabored, Respiratory pattern is regular, symmetrical, Breath sounds are clear bilaterally. GI: No deficits noted. No signs and/or symptoms were reported involving the gastrointestinal system. : No deficits noted. No signs and/or symptoms were reported regarding the genitourinary system. EENT: No deficits noted. No signs and/or symptoms were reported regarding the EENT system. Derm: Skin is healthy with good turgor, Skin is pink, warm \T\ dry. abscess at R inner thigh. Red and raised. Warm and tender to touch. 3cm in diameter with hard center. Musculoskeletal: Circulation, motion, and sensation intact. Capillary refill < 3 seconds. 09/06 01:19 Reassessment: Patient appears in no apparent distress at this time. Patient and/or ca1 family updated on plan of care and expected duration. Pain level reassessed. Patient is alert, oriented x 3, equal unlabored respirations, skin warm/dry/pink. Vital Signs: 09/05 21:40 BP 180 / 107; Pulse 102; Resp 20; Temp 97.8; Pulse Ox 98% on R/A; Weight 122.47 kg; ed1 Height 5 ft. 11 in. (180.34 cm); Pain 2/10; 22:45 BP 161 / 89; Pulse 92; Resp 18 S; Temp 98(O); Pulse Ox 98% on R/A; ca1 09/06 01:27 BP 161 / 95; Pulse 95; Resp 18 S; Temp 98(O); Pulse Ox 100% on R/A; ca1 02:21 BP 133 / 61; Pulse 89; Resp 18; Pulse Ox 99% ; rv 09/05 21:40 Body Mass Index 37.66 (122.47 kg, 180.34 cm) ed1 ED Course: 04 21:28 Patient arrived in ED. as 21:28 Korey Up MD is Private Physician. as 21:39 Triage completed. ed1 21:40 Arm band placed on right wrist. ed1 22:41 Caroline Esteban RN is Primary Nurse. ca1 22:43 Luis Fernando Gupta, COMPENSATION AND BENEFITS ANALYST is PHCP. pm1 22:43 Edilson Urias MD is Attending Physician. pm1 22:45 Patient has correct armband on for positive identification. Placed in gown. Bed in low ca1 position. Call light in reach. Side rails up X 1. Pulse ox on. NIBP on. Warm blanket given. 23:15 Initial lab(s) drawn, by me, sent to lab. First set of blood cultures drawn by me. ca1 23:35 Second set of blood cultures drawn by me. ca1 09/06 00:03 Inserted saline lock: 20 gauge in right antecubital area, using aseptic technique. ca1 Blood collected. 01:16 Korey Up MD is Hospitalizing Provider. pm1 01:17 Assist provider with I \T\ D: of an abscess on right inner thigh Set up I\T\D tray. ca 1 Performed by Luis Fernando Gupta NP Culture sent to lab. Wound packed. 4X4s, Dressing with 4X4s, Patient tolerated well. 01:28 Patient admitted, IV remains in place. ca1 01:32 Report given to Sanford Lei RN. 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 Exp: ca1 07/02/2020. Lot #: [id number]. } Route: IM; Site: right deltoid; 09/06 00:03 Follow up: Response: No adverse reaction ca1 00:21 Drug: NS 0.9% 1000 ml Route: IV; Rate: 100 ml/hr; Site: right antecubital; ca1 02:22 Follow up: IV Status: Completed infusion rv 00:22 Drug: Zosyn 3.375 grams Route: IVPB; Infused Over: 60 mins; Site: right antecubital; ca1 02:22 Follow up: IV Status: Completed infusion; IV Intake: 100ml rv 01:15 Drug: Lidocaine (1 %) 5 ml Volume: 5 ml; Route: Infiltration; ca1 01:15 Drug: Marcaine (0.5 %) 10 ml Volume: 10 ml; Route: Infiltration; ca1 02:21 Drug: vancoMYCIN 1 grams Route: IVPB; Infused Over: 2 hrs; Site: right antecubital; rv 02:22 Follow up: IV Status: Infusion continued upon admission rv Intake: 02:22 IV: 100ml; Total: 100ml. rv Outcome: 01:17 Decision to Hospitalize by Provider. pm1 02:23 Admitted to Med/surg accompanied by tech, via stretcher, room 217, with chart, Report rv called to HEIDY JOSEPH 02:23 Condition: good 02:23 Instructed on the need for admit. 02:24 Patient left the ED. rv Signatures: Bianka Montgomery Erika RN RN ed1 Luis Fernando Gupta, [employer] COMPENSATION AND BENEFITS ANALYST pm1 Sanford Lei RN RN rv Caroline Esteban RN RN ca1
--- NOTE | 2018-09-06 01:18 | EDPHYS ---
Physician Documentation [facility] Name: Yuniel Adkins Age: 38 yrs Sex: Male : 1980 Arrival Date: 09/05/2018 Time: 21:28 Bed 30 Private MD: Korey Up R ED Physician Edilson Urias HPI: 09/06 01:00 This 38 yrs old Male presents to ER via Ambulatory with complaints of Abscess.pm1 01:00 The patient presents with an abscess of the medial aspect of right thigh. Description: pm1 The affected area is large, draining, raised. Onset: The symptoms/episode began/occurred 6 day(s) ago. Possible cause(s): unknown. Associated signs and symptoms: Pertinent positives: discharge, drainage, Pertinent negatives: fever. Modifying factors: the symptoms are alleviated by nothing, the symptoms are aggravated by touching. Severity of symptoms: in the emergency department the symptoms are actually worse. The patient has experienced a previous episode, approximately 1 years ago. The patient has not recently seen a physician, the patient's primary care provider is Dr. Up. Patient with onset of small pimple area to right upper thigh on Friday. Became large with discharge starting Friday. Patient has been applying OTC boil cream without improvement. Patient has not been compliant with his medications for diabetes, metformin, and HTN for multiple months . Historical: - Allergies: 09/05 21:40 No Known Allergies; ed1 - Home Meds: 21:40 None [Active]; ed1 - PMHx: 21:40 Diabetes - NIDDM; Hypertension; ed1 - PSHx: 21:40 Back surgery; I\T\D; ed1 - Immunization history:: Adult Immunizations up to date. - Social history:: Smoking status: Patient/guardian denies using tobacco. - Ebola Screening: : Patient negative for fever greater than or equal to 101.5 degrees Fahrenheit, and additional compatible Ebola Virus Disease symptoms Patient denies exposure to infectious person Patient denies travel to an Ebola-affected area in the 21 days before illness onset No symptoms or risks identified at this time. ROS: 09/06 01:00 Constitutional: Negative for fever, chills, and weight loss, Eyes: Negative for injury, pm1 pain, redness, and discharge, ENT: Negative for injury, pain, and discharge, Neck: Negative for injury, pain, and swelling, Cardiovascular: Negative for chest pain, palpitations, and edema, Respiratory: Negative for shortness of breath, cough, wheezing, and pleuritic chest pain, Abdomen/GI: Negative for abdominal pain, nausea, vomiting, diarrhea, and constipation, Back: Negative for injury and pain, : Negative for injury, bleeding, discharge, and swelling. MS/Extremity: Negative for injury and deformity. Neuro: Negative for headache, weakness, numbness, tingling, and seizure. Skin: Positive for abscess, of the medial aspect of right thigh. Exam: 01:00 Skin: Appearance: normal except for affected area, abscess, that is small, of the pm1 medial aspect of indurated area located with bedside ultrasound. On ultrasound appears to be 1 cm x 2 cm area of abscess, induration, located on the medial aspect of right thigh, Other induration measures 10 cm x 8 cm. 01:00 Constitutional: This is a well developed, well nourished patient who is awake, alert, pm1 and in no acute distress. Head/Face: Normocephalic, atraumatic. Eyes: Pupils equal round and reactive to light, extra-ocular motions intact. Lids and lashes normal. Conjunctiva and sclera are non-icteric and not injected. Cornea within normal limits. Periorbital areas with no swelling, redness, or edema. ENT: Nares patent. No nasal discharge, no septal abnormalities noted. Tympanic membranes are normal and external auditory canals are clear. Oropharynx with no redness, swelling, or masses, exudates, or evidence of obstruction, uvula midline. Mucous membranes moist. Neck: Trachea midline, no thyromegaly or masses palpated, and no cervical lymphadenopathy. Supple, full range of motion without nuchal rigidity, or vertebral point tenderness. No Meningismus. Chest/axilla: Normal chest wall appearance and motion. Nontender with no deformity. No lesions are appreciated. Cardiovascular: Regular rate and rhythm with a normal S1 and S2. No gallops, murmurs, or rubs. Normal PMI, no JVD. No pulse deficits. Respiratory: Lungs have equal breath sounds bilaterally, clear to auscultation and percussion. No rales, rhonchi or wheezes noted. No increased work of breathing, no retractions or nasal flaring. Abdomen/GI: Soft, non-tender, with normal bowel sounds. No distension or tympany. No guarding or rebound. No evidence of tenderness throughout. Back: No spinal tenderness. No costovertebral tenderness. Full range of motion. MS/ Extremity: Pulses equal, no cyanosis. Neurovascular intact. Full, normal range of motion. 01:00 Neuro: Orientation: is normal, Motor: is normal, moves all fours. Vital Signs: 09/05 21:40 BP 180 / 107; Pulse 102; Resp 20; Temp 97.8; Pulse Ox 98% on R/A; Weight 122.47 kg; ed1 Height 5 ft. 11 in. (180.34 cm); Pain 2/10; 22:45 BP 161 / 89; Pulse 92; Resp 18 S; Temp 98(O); Pulse Ox 98% on R/A; ca1 09/06 01:27 BP 161 / 95; Pulse 95; Resp 18 S; Temp 98(O); Pulse Ox 100% on R/A; ca1 02:21 BP 133 / 61; Pulse 89; Resp 18; Pulse Ox 99% ; rv 09/05 21:40 Body Mass Index 37.66 (122.47 kg, 180.34 cm) ed1 Procedures: 01:06 I \T\ D: Incision and drainage was performed for an abscess of the right medial aspect of pm1 right thigh Prepped with Betadine, Anesthetized with 3 ml's 1% Lidocaine. marcaine 3ml. Incised with #11 blade. Drained small amount serosanguinous fluid. Loculations removed. Cultures obtained. Abscess cavity explored. Packed with iodoform gauze, Dressing: sterile 4x4 gauze, the patient tolerated the procedure well. MDM: 09/05 22:43 Patient medically screened. pm1 09/06 01:06 Data reviewed: vital signs. Data interpreted: Pulse oximetry: on room air is 98 %. pm1 Interpretation: normal. 01:15 Counseling: I had a detailed discussion with the patient and/or guardian regarding: the pm1 historical points, exam findings, and any diagnostic results supporting the discharge/admit diagnosis, lab results, radiology results, the need for further work-up and treatment in the hospital. 09/05 22:55 Order name: CBC with Diff; Complete Time: 23:37 pm1 09/05 22:55 Order name: CMP; Complete Time: 23:43 pm1 09/05 22:55 Order name: Blood Culture Adult (2) pm1 09/05 22:55 Order name: Procalcitonin; Complete Time: 23:52 pm1 09/05 22:55 Order name: Lactate; Complete Time: 23:43 pm1 09/06 01:16 Order name: Wound Culture ca1 09/06 01:22 Order name: CONS Physician Consult EDFL 09/05 22:55 Order name: IV Saline Lock; Complete Time: 23:25 pm1 09/06 00:13 Order name: NPO; Complete Time: 00:19 pm1 09/06 00:42 Order name: Incision \T\ Drainage Setup; Complete Time: 01:14 pm1 Administered Medications: 09/05 23:20 Drug: NS 0.9% 1000 ml Route: IV; Rate: 1000 ml; Site: right antecubital; ca1 23:24 Drug: Tetanus-Diphtheria Toxoid Adult 0.5 ml {[employer]: [employer]. Exp: ca1 07/02/2020. Lot #: [id number]. } Route: IM; Site: right deltoid; 09/06 00:03 Follow up: Response: No adverse reaction ca1 00:21 Drug: NS 0.9% 1000 ml Route: IV; Rate: 100 ml/hr; Site: right antecubital; ca1 02:22 Follow up: IV Status: Completed infusion rv 00:22 Drug: Zosyn 3.375 grams Route: IVPB; Infused Over: 60 mins; Site: right antecubital; ca1 02:22 Follow up: IV Status: Completed infusion; IV Intake: 100ml rv 01:15 Drug: Lidocaine (1 %) 5 ml Volume: 5 ml; Route: Infiltration; ca1 01:15 Drug: Marcaine (0.5 %) 10 ml Volume: 10 ml; Route: Infiltration; ca1 02:21 Drug: vancoMYCIN 1 grams Route: IVPB; Infused Over: 2 hrs; Site: right antecubital; rv 02:22 Follow up: IV Status: Infusion continued upon admission rv Disposition: 03:38 Co-signature as Attending Physician, Edilson Urias MD. rn Disposition: 09/06/18 01:17 Hospitalization ordered by Korey Up for Inpatient Admission. Preliminary diagnosis are Cutaneous abscess of right lower limb, Cellulitis of right lower limb. - Bed requested for Telemetry/MedSurg (Inpatient). - Status is Inpatient Admission. rv - Condition is Stable. - Problem is new. - Symptoms have improved. UTI on Admission? No Signatures: Dispatcher [employer] EDMS Edilson Urias MD MD rn Riggs, Erika, RN RN ed1 Rosmery Sykes RN RN cg Luis Fernando Gupta, CHILD CARE CENTER ASSISTANT DIRECTOR CHILD CARE CENTER ASSISTANT DIRECTOR pm1 Sanford Lei RN RN rv Acdasia, JAKE Velazquez RN ca1 Corrections: (The following items were deleted from the chart) 01:26 01:17 Hospitalization Ordered by Korey Up MD for Inpatient Admission. Preliminary pm1 diagnosis is Cutaneous abscess of right lower limb. Bed requested for Telemetry/MedSurg (Inpatient). Status is Inpatient Admission. Condition is Stable. Problem is new. Symptoms have improved. UTI on Admission? No. pm1 02:03 01:26 09/06/2018 01:17 Hospitalization Ordered by Korey Up MD for Inpatient cg Admission. Preliminary diagnosis is Cutaneous abscess of right lower limb; Cellulitis of right lower limb. Bed requested for Telemetry/MedSurg (Inpatient). Status is Inpatient Admission. Condition is Stable. Problem is new. Symptoms have improved. UTI on Admission? No. pm1 02:24 02:03 09/06/2018 01:17 Hospitalization Ordered by Korey Up MD for Inpatient rv Admission. Preliminary diagnosis is Cutaneous abscess of right lower limb; Cellulitis of right lower limb. Bed requested for Telemetry/MedSurg (Inpatient). Status is Inpatient Admission. Condition is Stable. Problem is new. Symptoms have improved. UTI on Admission? No. cg
[2018-09-06] MEDS ORDERED: D50W 25 GM/50 ML SYRINGE IV PRN (02:32)
[2018-09-06] MEDS ORDERED: ONDANSETRON 4 MG/2 ML VIAL IV PRN (02:32)
[2018-09-06] MEDS ORDERED: ACETAMINOPHEN 500 MG TAB PO PRN (02:32)
[2018-09-06] MEDS ORDERED: GLUCAGON 1 MG/VIAL IM PRN (02:32)
[2018-09-06] MEDS ORDERED: VANCOMYCIN/NS 1 gm 1 GM/250 ML BAG IVPB SCH (02:32)
[2018-09-06] MEDS ORDERED: VANCOMYCIN 1 GM/VIAL ONE (02:34)
[2018-09-06] MEDS ORDERED: PIPER/TAZO/NS 3.375gm 3.375 GM/100 ML BAG IVPB SCH ×2 (03:00→06:00)
[2018-09-06] MEDS: NA CHLORIDE 0.9% 1,000 ML IV SCH ×2 (03:19→12:19)
[2018-09-06] MEDS ORDERED: NA CHLORIDE 0.9% 250 ML ONE (03:29)
[2018-09-06] MEDS ORDERED: VANCOMYCIN/NS 1 gm 1 GM/250 ML BAG IVPB ONE (03:30)
[2018-09-06] MEDS ORDERED: VANCOMYCIN 2 GM in NA CHLORIDE 0.9% 500 ML IV SCH (04:00)
[2018-09-06 04:01] LABS: Urine Appearance CLEAR; Urine Bilirubin NEGATIVE (NEG); Urine Blood 2+ (NEG); Urine Color YELLOW; Urine Glucose 3+ (NEG); Urine Protein NEGATIVE (NEG); Urine Specific Gravity >=1.030 (1.005-1.030)
[2018-09-06 04:11] LABS: Urine Microscopic Reflex ORDER UMIC
[2018-09-06 05:06] LABS: Urine Bacteria <20 /HPF (NONE SEEN); Urine Culture Reflex Order NOT NEEDED
[2018-09-06] MEDS ORDERED: INSULIN -REGULAR HUMAN 50 UNIT/0.5 ML ML SQ SCH ×2 (06:00→07:30)
[2018-09-06] MEDS: INSULIN -REGULAR HUMAN 50 UNIT/0.5 ML ML SQ SCH ×3 (12:19→21:03)
[2018-09-06] MEDS: VANCOMYCIN 2 GM in NA CHLORIDE 0.9% 500 ML IV SCH (13:44)
[2018-09-06] MEDS: ZOLPIDEM TARTRATE 5 MG TABLET PO PRN (22:28)
--- NOTE | 2018-09-06 22:52 | HP ---
Date of Admission: 09/06/2018 Chief Complaint: Pain swelling, right groin area. History Of Present Illness: A 38-year-old male, who is a diabetic on medications, stopped taking his medications, started having pain in the right groin area, was brought to the emergency room where he was found to have cellulitis and abscess formation. I and D was done in the emergency room, however , still there is significant intrafascial swelling with a possibility of either severe cellulitis or second pocket of pus. The patient is admitted. Past Medical History: 1.Type 2 diabetes, currently on no medications. 2.Obesity. 3.Hypertension. Past Surgical History: Positive for back surgery. Family History: Diabetes present. Personal History: Nonsmoker. Allergies: NONE. Home Medicines: None. Review of Systems: No history of chest pain or shortness of breath. Physical Examination: General: Revealed a 38-year-old obese male. HEENT: Negative. Neck: Supple. JVD negative. Chest: Clear. Heart: Regular. Abdomen: Soft. Extremities: No edema. The right groin area has postoperative packing with residual swelling. Peda l pulse is present. Laboratory Data: White count normal. Blood sugar was 300. Assessment: 1.Cellulitis abscess, right thigh. 2.Uncontrolled diabetes. 3.Hypertension. Plan: The patient is due to be seen by surgeon to see whether he needs more exploration on just IV a ntibiotic will be sufficient. SKIP/EILEEN Voice ID: [id number]
--- NOTE | 2018-09-07 01:47 | CON ---
Date of Consultation: 09/06/2018 Diagnosis: Right groin cellulitis and abscess, also proximal thigh area. History Of Present Illness: This is a case of a 38-year-old patient with diabetes, who complained wi th cellulitis and abscess of the right groin region. ER initially did small I and D of the area, but still the area is large. It is not only covering the groin area, but also in the proximal medial th igh. A surgical consult was obtained for formal incision and drainage and debridement. Past Medical History: Diabetes. The patient is not taking any of his medications. Morbid obesity a nd hypertension. Past Surgical History: Back surgery. Family History: Diabetes. Social History: He does not smoke. He does not drink alcohol. Allergies: NONE. Medications: He does not take any medication at this time. Review of Systems: Ten points otherwise unremarkable. Physical Examination: General: The patient is awake and alert. HEENT: Pupils are equal and reactive. Anicteric. Neck: Supple. Chest: Clear. Abdomen: Soft and depressible. Nontender. Nondistended. Skin: Extremities and groin area shows a proximal thigh medial and also right groin region with an a bscess with large areas, about 10 x 15 cm of erythema and fluctuance. There is a small incision, but is not draining completely the abscess. Rectal: Deferred. Extremities: Good capillary refill. Laboratory Data: Blood work shows a WBC count of 10.2 with a glucose of 280 coming down from 330. Assessment: This is a 38-year-old patient with a large area of abscess and cellulitis of the right t high region and groin region. The patient will go for incision and drainage and debridement of those areas with benefits, alternatives, and risks including, but not limited to infection, bleeding, clyde ge to adjacent structures, anesthesia complication, recurrence, [place], and even . He also understa nds this may not relieve his symptoms. He might need more than one surgical intervention. He was as ked to be n.p.o. after midnight. He understands he will require wound care. Also, it is important f or him to understand the need for control of his sugar. RICCO/EILEEN Voice ID: [id number] Report ID: [id number]
[2018-09-07] MEDS: VANCOMYCIN 2 GM in NA CHLORIDE 0.9% 500 ML IV SCH ×2 (02:19→14:32)
[2018-09-07] MEDS: INSULIN -REGULAR HUMAN 50 UNIT/0.5 ML ML SQ SCH ×4 (07:30→20:53)
[2018-09-07] MEDS: NA CHLORIDE 0.9% 1,000 ML IV SCH ×2 (08:32→18:32)
[2018-09-07] MEDS ORDERED: NA CHLORIDE 0.9% 1,000 ML ONE (12:19)
[2018-09-07] MEDS ORDERED: PROPOFOL 200 MG/20 ML VIAL IV ONE (12:29)
[2018-09-07] MEDS ORDERED: FENTANYL CITR 100 MCG/2 ML ONE (12:29)
[2018-09-07] MEDS ORDERED: LIDOCAINE 2% MPF 5 ML VIAL ONE (12:30)
[2018-09-07] MEDS ORDERED: MIDAZOLAM HCL 2 MG/2 ML INJ ONE (12:30)
[2018-09-07] MEDS ORDERED: ONDANSETRON 4 MG/2 ML VIAL ONE (12:32)
[2018-09-07] MEDS ORDERED: NEOSTIGMINE 1 MG/ML -10 ML VIAL ONE (13:00)
[2018-09-07] MEDS ORDERED: GLYCOPYRROLATE 0.2 MG/ML SYR ONE (13:00)
--- NOTE | 2018-09-07 13:22 | P.BOP ---
Preoperative diagnosis: cellutis, abscess with necrotic tissue right groin and thigh Postoperative diagnosis: same Primary procedure: Incision and drainage with excisional deep subcutaneous debridment of Secondary procedure: abscess with necrotic tissue right groin and thigh [id number] Estimated blood loss: <20cc Specimen: culture and devitalized tissue Findings: see dictation Anesthesia: General Complications: None Drain(s): Other
[2018-09-07] MEDS: MORPHINE 4 MG/ML SYR IV PRN ×2 (14:31→20:51)
[2018-09-07] MEDS ORDERED: ENOXAPARIN 30 MG/0.3 ML SQ ONE (17:53)
[2018-09-07] MEDS: ZOLPIDEM TARTRATE 5 MG TABLET PO PRN (20:52)
--- NOTE | 2018-09-07 22:19 | PN ---
The patient underwent surgical excision and incision and drainage. The patient was explained about h is diabetes and postoperative followup. The patient will be continued on the IV antibiotic for now p ending the cultures. He also is started on Lovenox. SKIP/EILEEN Voice ID: [id number] Report ID: [id number]
--- NOTE | 2018-09-07 23:59 | OP ---
Date of Procedure: 09/07/2018 Surgeon: Arun Montgomery MD Preoperative Diagnoses: Cellulitis, abscess with necrotic tissue of the right groin and right proxim al thigh region. Postoperative Diagnoses: Cellulitis, abscess with necrotic tissue of the right groin and right proxi mal thigh region. Procedure Performed: Incision and drainage with excisional deep subcutaneous debridement of the righ t thigh and groin together, the abscess and necrotic tissue, 10 x 15 cm. Specimens: Culture and devitalized tissue. Findings: The patient has an area of necrotic tissue present, covered part of the groin and going to the proximal thigh region. Some tunnel present that were opened and drained. There is a superimpos ed infection present on this necrotic fatty tissue. The area was cultured and necrotic tissue was re moved. Indications: This is the case of a 38-year-old patient, comes to us with cellulitis and abscess of t he right groin region. He is diabetic. He is not taking his medications. I and D was initially sta rted in the ER, but it was not enough to drain this abscess and half of necrotic tissue needs surgica l debridement. The benefits, alternatives, and risks fully explained to the patient, which include, but are not limited to infection, bleeding, damage to adjacent structures, anesthesia complication, n onhealing wound, [place], and even . He also understands this may not relieve any symptoms. He migh t need more than one surgical intervention. He understands the importance of dressing changes and al so diabetes control. He signed a consent. Description Of Procedure: The patient was brought to the operating room, placed in supine position. Anesthesia was done without complication. Abdominal area was prepped and draped in a sterile fashio n. A time-out was called. Right groin and inner thigh were prepped and draped in a sterile fashion. Local anesthesia was applied followed by sharp incision of the skin and necrotic tissue, deep and t he deep subcutaneous tissue right near the muscle. All the necrotic tissue was removed. Loculations were explored and opened. Cultures were obtained. Hemostasis was obtained. The area was packed wi th wet-to-dry dressing. The patient tolerated the procedure well. The patient was sent to recovery in stable condition. RICCO/EILEEN Voice ID: [id number] Report ID: [id number]
[2018-09-08] MEDS: NA CHLORIDE 0.9% 1,000 ML IV SCH (00:44)
[2018-09-08] MEDS: VANCOMYCIN 2 GM in NA CHLORIDE 0.9% 500 ML IV SCH (02:45)
[2018-09-08] MEDS: INSULIN -REGULAR HUMAN 50 UNIT/0.5 ML ML SQ SCH ×2 (09:31→12:24)
[2018-09-08 14:16] LABS: Potassium 3.7 mmol/L (3.5-5.1)
[2018-09-08] MEDS: MORPHINE 4 MG/ML SYR IV PRN (14:18)
[2018-09-09] MEDS ORDERED: AMLODIPINE 5 MG TAB PO SCH (09:00)
== END 2018-09-08 14:32 | disposition home or self-care (01) | DRG 264 ==
LOC: ER 21:26 → ERHOLD 09-06 01:18 → 2ND 09-06 02:19
PROVIDERS: ADMIT Internal Medicine; ATTEND Internal Medicine
PROC: 0H9KXZZ Drainage of Right Lower Leg Skin, External Approach (ICD-10-PCS; 2018-09-06)
PROC: 0J9N0ZZ Drainage of Right Lower Leg Subcutaneous Tissue and Fascia, Open Approach (ICD-10-PCS; 2018-09-07)
PROC: 0Y950ZZ Drainage of Right Inguinal Region, Open Approach (ICD-10-PCS; 2018-09-07)
PROC: 0YB50ZZ Excision of Right Inguinal Region, Open Approach (ICD-10-PCS; 2018-09-07)
PROC: 0JBL0ZZ Excision of Right Upper Leg Subcutaneous Tissue and Fascia, Open Approach (ICD-10-PCS; principal; 2018-09-07 13:30)
DX: E11.52 Type 2 diabetes mellitus with diabetic peripheral angiopathy with gangrene (principal); L02.415 Cutaneous abscess of right lower limb; L02.214 Cutaneous abscess of groin; I96 Gangrene, not elsewhere classified; L03.314 Cellulitis of groin; L03.115 Cellulitis of right lower limb; E11.65 Type 2 diabetes mellitus with hyperglycemia; Z91.14 Patient's other noncompliance with medication regimen; I10 Essential (primary) hypertension; E66.9 Obesity, unspecified; Z68.37 Body mass index [BMI] 37.0-37.9, adult; Z23 Encounter for immunization; Z79.84 Long term (current) use of oral hypoglycemic drugs
CPT/HCPCS: 36415; 80048; 80053; 80202; 81003; 81015; 82962; 83605; 84145; 85025; 87040; 87070; 87075; 87077; 87186; 87205; 88304; 90471; 90714; 96365; 96366; 96367; 96375; 99285; J1650; J2250; J2405; J2543; J2704; J2710; J3010; J3370; J7030

== ENCOUNTER 2018-12-01 14:39 | Observation (INO) | payer OTHER ==
[2018-12-01 16:25] LABS: Absolute Lymphocytes (CBC) 0.7 K/uL (0.7-4.9); Basophils % 0.3 % (0-1.3); Lymphocytes % 14.2 % (15.3-44.8); MPV 8.4 fL (7.6-11.3); RBC Red Blood Cell Count 4.89 M/uL (4.33-5.43)
[2018-12-01 16:54] LABS: Albumin 3.4 g/dL (3.4-5.0); Bilirubin Total 0.8 mg/dL (0.2-1.0); Protein, Total 7.2 g/dL (6.4-8.2)
--- NOTE | 2018-12-01 17:06 | RAD REPORT ---
EXAM DESCRIPTION: CT - Stone Protocol - 12/01/2018 4:13 pm CLINICAL HISTORY: Chills cup of fever, hematuria COMPARISON: None. TECHNIQUE: Axial 5 mm thick images were obtained without oral or IV contrast. The [id number] span s the entirety of the system including uppermost abdomen and lung bases. All CT scans are performed using dose optimization technique as appropriate and may include automated exposure control or mA/KV adjustment according to patient size. FINDINGS: No hydronephrosis is present and no obstructing ureteral calculi. No suspicious renal mass es. Isodense masses and pyelonephritis are not excluded on a stone protocol CT scan. No urinary bladd er suspicious finding. No significant adrenal finding. Minimal symmetric perinephric stranding presen t. Imaged portions of the liver, spleen and pancreas show no suspicious findings on non-contrast imaging . No gallbladder or biliary tree abnormality identified. No suspicious bowel findings. No direct or indirect evidence for appendicitis. No hernia, mass or bulky lymphadenopathy noted. No free air, free fluid or inflammatory stranding. No significant bony abnormality. IMPRESSION: No hydronephrosis, obstructing calculus or acute finding identified. Isodense masses and pyelonephritis are not excluded on stone protocol technique. No other significant or suspicious findings.
--- NOTE | 2018-12-01 17:22 | RAD REPORT ---
EXAM DESCRIPTION: RAD - Chest Pa And Lat (2 Views) - 12/01/2018 4:27 pm CLINICAL HISTORY: Chest pain, dehydration COMPARISON: October 2017 TECHNIQUE: PA and lateral views of the chest were obtained. FINDINGS: The lungs are clear. Heart size is normal and central vasculature is within normal limit s. No pleural effusion or pneumothorax seen. No acute bony finding noted. No aortic abnormality. IMPRESSION: No acute cardiopulmonary process. No significant change from comparison.
[2018-12-01] MEDS ORDERED: D50W 25 GM/50 ML SYRINGE IV PRN (18:53)
[2018-12-01] MEDS ORDERED: GLUCAGON 1 MG/VIAL IM PRN (18:53)
[2018-12-01] MEDS ORDERED: ONDANSETRON 4 MG/2 ML VIAL IV PRN (19:17)
[2018-12-01] MEDS: NACHLORIDE 0.45% 1,000 ML IV SCH (19:30)
[2018-12-01] MEDS: ACETAMINOPHEN 500 MG TAB PO PRN (19:54)
[2018-12-01] MEDS ORDERED: HYDRALAZINE HCL 20 MG/ML VIAL IV PRN (20:22)
[2018-12-02] MEDS ORDERED: INSULIN -REGULAR HUMAN 50 UNIT/0.5 ML ML SQ SCH
[2018-12-02] MEDS: NACHLORIDE 0.45% 1,000 ML IV SCH ×3 (01:13→11:06)
[2018-12-02 04:10] LABS: Urine Appearance CLEAR; Urine Bilirubin NEGATIVE (NEG); Urine Blood 3+ (NEG); Urine Color DK YELLOW; Urine Glucose TRACE (NEG); Urine Protein 2+ (NEG); Urine Specific Gravity >=1.030 (1.005-1.030)
[2018-12-02 04:15] LABS: Urine Microscopic Reflex ORDER UMIC
[2018-12-02 04:44] LABS: Urine Bacteria >50 /HPF (NONE SEEN); Urine Culture Reflex Order REFLEXED; Urine RBC 20-50 /HPF (NONE SEEN)
[2018-12-02] MEDS: INSULIN -REGULAR HUMAN 50 UNIT/0.5 ML ML SQ SCH ×2 (07:30→11:15)
[2018-12-02] MEDS ORDERED: CEFTRIAXONE/SWI 2gm 2 GM/20 ML SYR IV SCH (09:00)
[2018-12-02] MEDS: ACETAMINOPHEN 500 MG TAB PO PRN (09:36)
--- NOTE | 2018-12-03 00:13 | HP ---
Date of Admission: 12/01/2018 Chief Complaint: Multiple. History Of Present Illness: 38-year-old male was brought to the office with history of fevers, sweat s of 3 days' duration, nausea, abdominal cramps, and multiple other symptoms. He was examined and he was found to have gross hematuria, tenderness in the umbilical area. Patient was admitted for obser vation as it was not clear whether patient had pyelonephritis secondary to kidney stone obstruction o r patient had pancreatitis. Patient denied any history of vomiting of blood. No history of rectal b leeding. Past Medical History: Positive for type 2 diabetes, hypertension. Surgical History: Back surgery, 2014. Family History: Positive for hypertension and diabetes. Allergies: NONE. Home Medicines: Please refer to the chart. Review of Systems: No history of chest pain or shortness of breath. Physical Examination: General: Revealed 38-year-old male, obese. Vital Signs: Blood pressure 130/70, temperature normal. HEENT: No icterus. Neck: Supple. JVD negative. Chest: Clear. Heart: Regular. Abdomen: Tender in the umbilical area. Bowel sounds present. Extremities: No edema. Laboratory Data: Urinalysis: Hematuria present, bacteria present. CAT scan of the abdomen: No gracy dence of kidney stone or obstruction. Chem profile, CBC essentially negative. Assessment: 1.Febrile illness. 2.Urinary tract infection. 3.Type 2 diabetes. 4.Hypertension. 5.Status post back surgery. Plan: Patient received IV fluids and patient received Rocephin IV. As patient is afebrile, I will d ischarge the patient pending the urine culture notification by the lab. He will be discharged on Cip ro and he will be followed in the office. SKIP/EILEEN Voice ID: [id number]
== END 2018-12-02 15:20 | disposition home or self-care (01) ==
LOC: 4TH 14:57 → UNDODISOB 17:04
PROVIDERS: ADMIT Internal Medicine; ATTEND Internal Medicine
DX: E86.0 Dehydration (principal); N39.0 Urinary tract infection, site not specified; R50.9 Fever, unspecified; R10.815 Periumbilic abdominal tenderness; E11.9 Type 2 diabetes mellitus without complications; I10 Essential (primary) hypertension
CPT/HCPCS: 87040 ×2; 87088; 85025; 87086; 36415; 87205 ×3; 82962 ×4; 87077 ×2; 87186 ×2; 83690; 80053; 76377; 74176; 71046; J0360; J0696; J2405; G0378 ×2; 81003; 81015

== ENCOUNTER 2019-04-09 23:09 | Emergency (ER) | payer OTHER ==
[2019-04-09] MEDS ORDERED: TETANUS & DIPHTHERIA TOX,ADULT 0.5 ML VIAL ONE (23:53)
[2019-04-09] MEDS ORDERED: DOXYCYCLINE 100 MG CAP PO ONE (23:53)
[2019-04-09] MEDS ORDERED: HYDROCODONE/APAP 5/325 MG TAB ONE (23:53)
--- NOTE | 2019-04-10 00:12 | ER ---
Nurse's Notes [facility] Name: Yuniel Adkins Age: 38 yrs Sex: Male : 1980 Arrival Date: 04/09/2019 Time: 23:12 Bed 6 Private MD: Diagnosis: Cutaneous abscess of neck Presentation: 04/09 23:28 Presenting complaint: Patient states: abscess to back of head that began 2-3 days ago. ss Denies fever, chills. Transition of care: patient was not received from another setting of care. Acute neurological deficit: none identified. Onset of symptoms was April 06, 2019. Risk Assessment: Do you want to hurt yourself or someone else? Patient reports no desire to harm self or others. Initial Sepsis Screen: Does the patient meet any 2 criteria? HR > 90 bpm. Does the patient have a suspected source of infection? Yes: Skin breakdown/wound. Care prior to arrival: None. 23:28 Method Of Arrival: Ambulatory ss 23:28 Acuity: LUKE 4 ss Historical: - Allergies: 23:30 No Known Allergies; ss - PMHx: 23:30 Diabetes - NIDDM; Hypertension; ss - PSHx: 23:30 I\T\D; back; ss - Immunization history:: Adult Immunizations up to date. - Social history:: Smoking status: Patient/guardian denies using tobacco. - Ebola Screening: : Patient denies exposure to infectious person Patient denies travel to an Ebola-affected area in the 21 days before illness onset. Screenin:44 Abuse screen: Denies threats or abuse. Nutritional screening: No deficits noted. jd3 Tuberculosis screening: No symptoms or risk factors identified. Fall Risk None identified. Assessment: 23:40 General: Appears in no apparent distress. uncomfortable, Behavior is calm, cooperative, jd3 appropriate for age. Pain: Complains of pain in back of neck Quality of pain is described as pressure, tender. Neuro: Level of Consciousness is awake, alert, obeys commands, Oriented to person, place, time, situation. Cardiovascular: Capillary refill < 3 seconds Patient's skin is warm and dry. Respiratory: Airway is patent Respiratory effort is even, unlabored, Respiratory pattern is regular, symmetrical. GI: No signs and/or symptoms were reported involving the gastrointestinal system. : No signs and/or symptoms were reported regarding the genitourinary system. EENT: No signs and/or symptoms were reported regarding the EENT system. Derm: Skin is intact, Skin is dry, Skin is normal, Skin temperature is warm. Musculoskeletal: Circulation, motion, and sensation intact. Range of motion: intact in all extremities. 04/10 00:15 Reassessment: Patient appears in no apparent distress at this time. Patient and/or jd3 family updated on plan of care and expected duration. Pain level reassessed. Patient is alert, oriented x 3, equal unlabored respirations, skin warm/dry/pink. Vital Signs: 04/09 23:30 BP 161 / 99; Pulse 112; Resp 17; Temp 98.7(TE); Pulse Ox 99% on R/A; Weight 122.47 kg; ss Height 5 ft. 11 in. (180.34 cm); Pain 6/10; 23:30 Body Mass Index 37.66 (122.47 kg, 180.34 cm) ED Course: 23:12 Patient arrived in ED. cl3 23:24 Jayla Rose FNP-C is PHCP. snw 23:24 Henrique Kaufman MD is Attending Physician. snw 23:30 Triage completed. ss 23:30 Arm band placed on right wrist. ss 23:35 Corey Tijerina RN is Primary Nurse. jd3 23:45 Patient has correct armband on for positive identification. Bed in low position. Call jd3 light in reach. Side rails up X 1. Adult w/ patient. 04/10 00:15 No provider procedures requiring assistance completed. Patient did not have IV access jd3 during this emergency room visit. Administered Medications: 00:00 Drug: [place] 5 mg-325 mg 1 tabs Route: PO; jd3 00:16 Follow up: Response: Medication administered at discharge. jd3 00:00 Not Given (Other Intervention Used): Tetanus-Diphtheria Toxoid Adult 0.5 ml IM once jd3 00:01 Drug: Doxycycline 100 mg Route: PO; jd3 00:17 Follow up: Response: Medication administered at discharge. jd3 00:01 Drug: Hibiclens 4 % 1 application Route: Topical; Site: wound; jd3 Outcome: 00:10 Discharge ordered by . snw 00:15 Discharged to home ambulatory. jd3 00:15 Condition: stable 00:15 Discharge instructions given to patient, Instructed on discharge instructions, follow up and referral plans. medication usage, Demonstrated understanding of instructions, follow-up care, medications, Prescriptions given X 2. 00:17 Patient left the ED. sahra Signatures: Jayla Rose, FINANCE INSURANCE MANAGER-C FINANCE INSURANCE MANAGER-Csnw Mary Beth Sellers RN RN ss Davies, Jonathon, RN RN jd3 Lewis, Charde cl3
--- NOTE | 2019-04-10 00:12 | EDPHYS ---
Physician Documentation [facility] Name: Yuniel Adkins Age: 38 yrs Sex: Male : 1980 Arrival Date: 04/09/2019 Time: 23:12 Bed 6 Private MD: Henrique St HPI: 04/10 00:23 This 38 yrs old Male presents to ER via Ambulatory with complaints of Neck snw Problem. 00:23 The patient or guardian complains of ingrown hair. The symptoms are located posterior snw neck. Onset: The symptoms/episode began/occurred suddenly, 3 day(s) ago. Context: The problem was sustained at home, The neck injury/problem resulted from ingrown hair. Associated signs and symptoms: The patient has no apparent associated signs or symptoms. The pain does not radiate. Severity of symptoms: At their worst the symptoms were moderate. The patient has experienced a previous episode. It is unknown whether or not the patient has had similar symptoms in the past. The patient has not recently seen a physician. encouraged to take his HTN meds as directed. Historical: - Allergies: 04/09 23:30 No Known Allergies; ss - PMHx: 23:30 Diabetes - NIDDM; Hypertension; ss - PSHx: 23:30 I\T\D; back; ss - Immunization history:: Adult Immunizations up to date. - Social history:: Smoking status: Patient/guardian denies using tobacco. - Ebola Screening: : Patient denies exposure to infectious person Patient denies travel to an Ebola-affected area in the 21 days before illness onset. ROS: 04/10 00:22 Constitutional: Negative for fever, chills, and weight loss, Eyes: Negative for injury, snw pain, redness, and discharge, ENT: Negative for injury, pain, and discharge, Cardiovascular: Negative for chest pain, palpitations, and edema, Respiratory: Negative for shortness of breath, cough, wheezing, and pleuritic chest pain, Abdomen/GI: Negative for abdominal pain, nausea, vomiting, diarrhea, and constipation, Back: Negative for injury and pain, : Negative for injury, bleeding, discharge, and swelling, MS/Extremity: Negative for injury and deformity, Skin: Negative for injury, rash, and discoloration, Neuro: Negative for headache, weakness, numbness, tingling, and seizure. Neck: Positive for tenderness, of the back of neck, hx of abscess in the past. Exam: 00:20 Constitutional: This is a well developed, well nourished patient who is awake, alert, snw and in no acute distress. Head/Face: Normocephalic, atraumatic. Eyes: Pupils equal round and reactive to light, extra-ocular motions intact. Lids and lashes normal. Conjunctiva and sclera are non-icteric and not injected. Cornea within normal limits. Periorbital areas with no swelling, redness, or edema. ENT: Nares patent. No nasal discharge, no septal abnormalities noted. Tympanic membranes are normal and external auditory canals are clear. Oropharynx with no redness, swelling, or masses, exudates, or evidence of obstruction, uvula midline. Mucous membranes moist. Chest/axilla: Normal chest wall appearance and motion. Nontender with no deformity. No lesions are appreciated. Cardiovascular: Regular rate and rhythm with a normal S1 and S2. No gallops, murmurs, or rubs. Normal PMI, no JVD. No pulse deficits. Respiratory: Lungs have equal breath sounds bilaterally, clear to auscultation and percussion. No rales, rhonchi or wheezes noted. No increased work of breathing, no retractions or nasal flaring. Abdomen/GI: Soft, non-tender, with normal bowel sounds. No distension or tympany. No guarding or rebound. No evidence of tenderness throughout. Back: No spinal tenderness. No costovertebral tenderness. Full range of motion. Skin: Warm, dry with normal turgor. Normal color with no rashes, no lesions, and no evidence of cellulitis. MS/ Extremity: Pulses equal, no cyanosis. Neurovascular intact. Full, normal range of motion. Neuro: Awake and alert, GCS 15, oriented to person, place, time, and situation. Cranial nerves II-XII grossly intact. Motor strength 5/5 in all extremities. Sensory grossly intact. Cerebellar exam normal. Normal gait. 00:20 Neck: External neck: abscess, that is small, of the lower cervical area, unroofed with 18 gauge needle, swelling, that is mild. Vital Signs: 04/09 23:30 BP 161 / 99; Pulse 112; Resp 17; Temp 98.7(TE); Pulse Ox 99% on R/A; Weight 122.47 kg; ss Height 5 ft. 11 in. (180.34 cm); Pain 6/10; 23:30 Body Mass Index 37.66 (122.47 kg, 180.34 cm) ss MDM: 23:28 Patient medically screened. [facility] 04/10 00:22 Data reviewed: vital signs, nurses notes. Data interpreted: Pulse oximetry: on room air snw is 99 %. Interpretation: normal. Counseling: I had a detailed discussion with the patient and/or guardian regarding: the historical points, exam findings, and any diagnostic results supporting the discharge/admit diagnosis, the need for outpatient follow up, to return to the emergency department if symptoms worsen or persist or if there are any questions or concerns that arise at home. Response to treatment: the patient's symptoms have mildly improved after treatment. 04/09 23:42 Order name: PO challenge; Complete Time: 23:47 snw Administered Medications: 00:00 Drug: [place] 5 mg-325 mg 1 tabs Route: PO; jd3 00:16 Follow up: Response: Medication administered at discharge. jd3 00:00 Not Given (Other Intervention Used): Tetanus-Diphtheria Toxoid Adult 0.5 ml IM once jd3 00:01 Drug: Doxycycline 100 mg Route: PO; jd3 00:17 Follow up: Response: Medication administered at discharge. jd3 00:01 Drug: Hibiclens 4 % 1 application Route: Topical; Site: wound; jd3 Disposition: 04/10/19 00:10 Discharged to Home. Impression: Cutaneous abscess of neck. - Condition is Stable. - Discharge Instructions: Skin Abscess, Hypertension, Wound Care, Heat Therapy, Form - Blood Pressure Record Sheet. - Prescriptions for Doxycycline Hyclate 100 mg Oral Tablet - take 1 tablet by ORAL route every 12 hours; 20 tablet. Diclofenac Sodium 75 mg Oral Tablet Sustained Release - take 1 tablet by ORAL route 2 times per day; 30 tablet. - Work release form, Medication Reconciliation Form, Thank You Letter, Antibiotic Education, Prescription Opioid Use form. - Follow up: Emergency Department; When: As needed; Reason: Worsening of condition. Follow up: Private Physician; When: 2 - 3 days; Reason: Recheck today's complaints, Continuance of care, Re-evaluation by your physician. Addendum: 04/12/2019 09:24 Co-signature as Attending Physician, Henrique Kaufman MD I agree with the assessment and c baer plan of care. Signatures: Henrique Kaufman MD MD cha Therrien, Shelly, METALLURGICAL ENGINEER-C METALLURGICAL ENGINEER-Gracew Mary Beth Sellers, RN RN ss Corey Tijerina RN RN jd3 Corrections: (The following items were deleted from the chart) 04/10 00:17 00:10 04/10/2019 00:10 Discharged to Home. Impression: Cutaneous abscess of neck. jd3 Condition is Stable. Forms are Medication Reconciliation Form, Thank You Letter, Antibiotic Education, Prescription Opioid Use. Follow up: Emergency Department; When: As needed; Reason: Worsening of condition. Follow up: Private Physician; When: 2 - 3 days; Reason: Recheck today's complaints, Continuance of care, Re-evaluation by your physician. snw
[2019-04-10 01:22] VITALS: BP 161/99; TEMP 98.7; O2SAT 99
== END 2019-04-10 00:17 | disposition home or self-care (01) ==
LOC: ER 23:09
DX: L02.11 Cutaneous abscess of neck (principal)
CPT/HCPCS: 90714; 99283

== ENCOUNTER 2019-04-13 04:39 | Inpatient (IN) | payer OTHER ==
[2019-04-13] MEDS ORDERED: PIPER/TAZO/NS 3.375gm 3.375 GM/100 ML BAG ONE (05:32)
[2019-04-13 05:58] LABS: Absolute Lymphocytes (CBC) 1.2 K/uL (0.7-4.9); Basophils % 0.4 % (0-1.3); Hematocrit 41.4 % (39.6-49.0); MPV 8.4 fL (7.6-11.3)
[2019-04-13 06:08] LABS: ALT/SGPT 34 U/L (12-78); AST/SGOT 19 U/L (15-37); Albumin 3.4 g/dL (3.4-5.0); Alkaline Phosphatase 118 U/L (45-117); BUN Blood Urea Nitrogen 21 mg/dL (7-18); Bicarbonate 27 mmol/L (21-32); Bilirubin Direct 0.4 mg/dL (0-0.2); Glucose Level 334 mg/dL (74-106); Potassium 3.8 mmol/L (3.5-5.1); Protein, Total 8.2 g/dL (6.4-8.2); Sodium Level 131 mmol/L (136-145); Troponin (Emerg Dept Use Only) < 0.02 ng/mL (0.0-0.045)
[2019-04-13] MEDS ORDERED: ONDANSETRON 4 MG/2 ML VIAL ONE (06:19)
--- NOTE | 2019-04-13 06:34 | ER ---
Nurse's Notes [facility] Name: Yuniel Adkins Age: 38 yrs Sex: Male : 1980 Arrival Date: 04/13/2019 Time: 04:42 Bed 17 Private MD: Diagnosis: Cellulitis of left lower limb;Hyperglycemia, unspecified Presentation: 04/13 04:51 Presenting complaint: Patient states: his L great toe has been swollen for several days aa1 so he made several puncture holes to drain it and he reports some purulent drainage came out but this morning he noticed it was starting to turn black. Transition of care: patient was not received from another setting of care. Onset of symptoms was April 09, 2019. Risk Assessment: Do you want to hurt yourself or someone else? Patient reports no desire to harm self or others. Initial Sepsis Screen: Does the patient meet any 2 criteria? HR > 90 bpm. Does the patient have a suspected source of infection? Yes: Skin breakdown/wound. Care prior to arrival: None. 04:51 Method Of Arrival: Ambulatory aa1 04:51 Acuity: LUKE 3 aa1 Triage Assessment: 04:55 General: Appears in no apparent distress. comfortable, Behavior is calm, cooperative, aa1 appropriate for age. Historical: - Allergies: 04:55 No Known Allergies; aa1 - Home Meds: 04:55 metformin 1,000 mg Oral tr24 1 tab 2 times per day [Active]; glimepiride 1 mg Oral tab aa1 1 tab once daily [Active]; valsartan oral oral [Active]; - PMHx: 04:55 Diabetes - NIDDM; Hypertension; aa1 - PSHx: 04:55 back sx; aa1 - Immunization history:: Last tetanus immunization: up to date. - Social history:: Smoking status: Patient/guardian denies using tobacco. - Ebola Screening: : No symptoms or risks identified at this time. Screenin:10 Abuse screen: Denies threats or abuse. Denies injuries from another. Nutritional wh screening: No deficits noted. Tuberculosis screening: No symptoms or risk factors identified. Fall Risk None identified. Assessment: 05:10 General: Appears in no apparent distress. Behavior is calm, cooperative, appropriate wh for age. Pain: Denies pain. Neuro: Level of Consciousness is awake, alert, obeys commands, Oriented to person, place, time, situation, Appropriate for age. Cardiovascular: Heart tones S1 S2. Respiratory: Airway is patent Respiratory effort is even, unlabored, Respiratory pattern is regular, symmetrical, Breath sounds are clear bilaterally. GI: Abdomen is flat, non-distended. : No signs and/or symptoms were reported regarding the genitourinary system. EENT: No signs and/or symptoms were reported regarding the EENT system. Derm: Wound noted plantar aspect of left first toe. Musculoskeletal: Circulation, motion, and sensation intact. 06:02 Reassessment: Patient appears in no apparent distress at this time. No changes from wh previously documented assessment. Patient and/or family updated on plan of care and expected duration. Pain level reassessed. Patient is alert, oriented x 3, equal unlabored respirations, skin warm/dry/pink. 07:00 Reassessment: Patient appears in no apparent distress at this time. No changes from tw2 previously documented assessment. Patient and/or family updated on plan of care and expected duration. Pain level reassessed. Patient is alert, oriented x 3, equal unlabored respirations, skin warm/dry/pink. 08:00 Reassessment: Patient appears in no apparent distress at this time. No changes from tw2 previously documented assessment. Patient and/or family updated on plan of care and expected duration. Pain level reassessed. Patient is alert, oriented x 3, equal unlabored respirations, skin warm/dry/pink. 08:35 Reassessment: Dr. Up called and stated, "I am Carrales doctor and they have him rb1 admitted to the hospitalist and I would like it corrected and have him admitted to me because I am his primary doctor." Received verbal order from Dr. Up to change the admitting doctor from Dr. Urrutia to Dr. Up. 100 % read back I notified Arabella, Engineer System Administrator and Bianka, Registration. Bianka reports that the admitting doctor can change it or the primary nurse may change the order. 09:00 Reassessment: Patient appears in no apparent distress at this time. No changes from tw2 previously documented assessment. Patient and/or family updated on plan of care and expected duration. Pain level reassessed. Patient is alert, oriented x 3, equal unlabored respirations, skin warm/dry/pink. Vital Signs: 04:55 BP 184 / 106; Pulse 125; Resp 18; Temp 98.5; Pulse Ox 100% on R/A; Weight 122.47 kg; aa1 Height 5 ft. 11 in. (180.34 cm); Pain 6/10; 06:02 BP 162 / 93; Pulse 117; Resp 18; Pulse Ox 100% on R/A; wh 07:00 BP 151 / 91; Pulse 105; Resp 17; Pulse Ox 97% on R/A; tw2 08:00 BP 133 / 82; Pulse 102; Resp 17; Pulse Ox 97% on R/A; tw2 09:22 BP 134 / 84; Pulse 103; Resp 17; Pulse Ox 97% ; tw2 04:55 Body Mass Index 37.66 (122.47 kg, 180.34 cm) aa1 ED Course: 04:42 Patient arrived in ED. ag3 04:45 True Aragon is Primary Nurse. wh 04:51 Mike Nugent MD is Attending Physician. tw4 04:54 Triage completed. aa1 04:55 Arm band placed on right wrist. aa1 05:10 Patient has correct armband on for positive identification. Bed in low position. Call wh light in reach. Side rails up X 1. Pulse ox on. NIBP on. 05:30 Inserted saline lock: 20 gauge in right antecubital area, using aseptic technique. Blood collected. 05:42 Foot Left 2 View XRAY In Process Unspecified. EDMS 06:30 Brigitte Urrutia MD is Hospitalizing Provider. tw4 08:45 Hospitalizing Provider role handed off by Brigitte Urrutia MD bd 08:45 Korey Up MD is Hospitalizing Provider. bd 09:21 Awaiting: unsuccessful attempt to call report at this time. tw2 09:24 No provider procedures requiring assistance completed. Patient admitted, IV remains in tw2 place. Administered Medications: 05:36 Drug: Zosyn 3.375 grams Route: IVPB; Infused Over: 60 mins; Site: right antecubital; wh 06:21 Drug: Zofran 4 mg Route: IVP; Site: right antecubital; 07:20 Follow up: Response: No adverse reaction; Nausea is decreased tw2 Outcome: 06:33 Decision to Hospitalize by Provider. tw4 09:37 Admitted to Med/surg accompanied by tech, via wheelchair, room 424, with chart, Report tw2 called to JAEK Red 09:37 Condition: stable 09:37 Instructed on the need for admit. 10:03 Patient left the ED. tw2 Signatures: Dispatcher [employer] EDMS Kim Sidhu Alissa, RN RN aa1 Leslie Austin RN RN rb1 Gay Fleming RN RN tw2 True Aragon Terrence, MD MD tw4 Debora Gomes ag3
--- NOTE | 2019-04-13 06:35 | EDPHYS ---
Physician Documentation [facility] Name: Yuniel Adkins Age: 38 yrs Sex: Male : 1980 Arrival Date: 04/13/2019 Time: 04:42 Bed 17 Private MD: ED Physician Mike Nugent HPI: 04/13 05:18 This 38 yrs old Male presents to ER via Ambulatory with complaints of TOE tw4 SWELLING. 05:18 The patient presents with pain, that is acute. The complaints affect the left foot, tw4 plantar aspect of left first toe, left first toe and Left first toenail. Context: The problem was sustained at home. Onset: The symptoms/episode began/occurred 3 day(s) ago. Modifying factors: The symptoms are alleviated by nothing, the symptoms are aggravated by nothing. Associated signs and symptoms: Pertinent positives: swelling, warmth, PURULENT DRAINAGE. Severity of symptoms: At their worst the symptoms were moderate, in the emergency department the symptoms are unchanged. The patient has not experienced similar symptoms in the past. Historical: - Allergies: 04:55 No Known Allergies; aa1 - Home Meds: 04:55 metformin 1,000 mg Oral tr24 1 tab 2 times per day [Active]; glimepiride 1 mg Oral tab aa1 1 tab once daily [Active]; valsartan oral oral [Active]; - PMHx: 04:55 Diabetes - NIDDM; Hypertension; aa1 - PSHx: 04:55 back sx; aa1 - Immunization history:: Last tetanus immunization: up to date. - Social history:: Smoking status: Patient/guardian denies using tobacco. - Ebola Screening: : No symptoms or risks identified at this time. ROS: 05:18 MS/extremity: Positive for decreased range of motion, ecchymosis, erythema, pain, tw4 swelling, tenderness, warmth, Negative for injury or acute deformity, bite, paresthesias, rash, tingling. 05:18 Constitutional: Negative for fever, chills, and weight loss, Cardiovascular: Negative for chest pain, palpitations, and edema, Respiratory: Negative for shortness of breath, cough, wheezing, and pleuritic chest pain, Abdomen/GI: Negative for abdominal pain, nausea, vomiting, diarrhea, and constipation, Back: Negative for injury and pain, Skin: Negative for injury, rash, and discoloration, Neuro: Negative for headache, weakness, numbness, tingling, and seizure. Exam: 05:18 Constitutional: This is a well developed, well nourished patient who is awake, alert, tw4 and in no acute distress. Head/Face: Normocephalic, atraumatic. Chest/axilla: Normal chest wall appearance and motion. Nontender with no deformity. No lesions are appreciated. Cardiovascular: Regular rate and rhythm with a normal S1 and S2. No gallops, murmurs, or rubs. Normal PMI, no JVD. No pulse deficits. Respiratory: Lungs have equal breath sounds bilaterally, clear to auscultation and percussion. No rales, rhonchi or wheezes noted. No increased work of breathing, no retractions or nasal flaring. Abdomen/GI: Soft, non-tender, with normal bowel sounds. No distension or tympany. No guarding or rebound. No evidence of tenderness throughout. Back: No spinal tenderness. No costovertebral tenderness. Full range of motion. 05:18 Musculoskeletal/extremity: Extremities: noted in the plantar aspect of left first toe, left first toe and Left first toenail: erythema, puncture, swelling, tenderness. Vital Signs: 04:55 BP 184 / 106; Pulse 125; Resp 18; Temp 98.5; Pulse Ox 100% on R/A; Weight 122.47 kg; aa1 Height 5 ft. 11 in. (180.34 cm); Pain 6/10; 06:02 BP 162 / 93; Pulse 117; Resp 18; Pulse Ox 100% on R/A; wh 07:00 BP 151 / 91; Pulse 105; Resp 17; Pulse Ox 97% on R/A; tw2 08:00 BP 133 / 82; Pulse 102; Resp 17; Pulse Ox 97% on R/A; tw2 09:22 BP 134 / 84; Pulse 103; Resp 17; Pulse Ox 97% ; tw2 04:55 Body Mass Index 37.66 (122.47 kg, 180.34 cm) aa1 MDM: 04:51 Patient medically screened. tw4 06:16 Data reviewed: vital signs, nurses notes. Counseling: I had a detailed discussion with tw4 the patient and/or guardian regarding: the historical points, exam findings, and any diagnostic results supporting the discharge/admit diagnosis. Physician consultation: Brigitte Urrutia MD regarding admission, to the medical/surgical unit. patient's condition, and will see patient in ED. 04/13 04:54 Order name: Wound Culture tw4 04/13 04:54 Order name: Basic Metabolic Panel; Complete Time: 06:09 tw4 04/13 06:09 Interpretation: Normal except: NA 131; GLUC 334; CL 94; BUN 21; GFR 67. tw4 04/13 04:54 Order name: Blood Culture Adult (2) tw4 04/13 04:54 Order name: CBC with Diff; Complete Time: 06:09 tw4 04/13 06:09 Interpretation: Normal except: PARMJIT% 75.3; LYM% 12.0. tw4 04/13 04:54 Order name: Lactate; Complete Time: 06:09 tw4 04/13 06:10 Interpretation: Within normal limits: LAC 1.5. tw4 04/13 04:54 Order name: LFT's; Complete Time: 06:09 tw4 04/13 06:10 Interpretation: Normal except: ALK 118; BILID 0.4; GLOB 4.8; A/G 0.7. tw4 04/13 04:54 Order name: Procalcitonin tw4 04/13 04:54 Order name: Troponin (emerg Dept Use Only); Complete Time: 06:09 tw4 04/13 04:54 Order name: Urine Microscopic Only tw4 04/13 04:54 Order name: Accucheck; Complete Time: 05:29 tw4 04/13 04:54 Order name: Foot Left 2 View XRAY tw4 04/13 05:47 Order name: Glucose, Ancillary Testing; Complete Time: 06:09 EDWY 04/13 06:10 Interpretation: Normal except: GLUC,ANCIL 316. tw4 04/13 04:54 Order name: IV Saline Lock - Large Bore; Complete Time: 05:29 tw4 04/13 04:54 Order name: Labs collected and sent; Complete Time: 05:29 tw4 Administered Medications: 05:36 Drug: Zosyn 3.375 grams Route: IVPB; Infused Over: 60 mins; Site: right antecubital; wh 06:21 Drug: Zofran 4 mg Route: IVP; Site: right antecubital; wh 07:20 Follow up: Response: No adverse reaction; Nausea is decreased tw2 Disposition: 04/13/19 06:33 Hospitalization ordered by Korey Up for Inpatient Admission. Preliminary diagnosis are Cellulitis of left lower limb, Hyperglycemia, unspecified. - Bed requested for Telemetry/MedSurg (Inpatient). - Status is Inpatient Admission. tw2 - Condition is Stable. - Problem is new. - Symptoms have improved. UTI on Admission? No Signatures: Dispatcher [employer] EDMS Kim Sidhu Diana RN RN dw Caitie Nettles RN RN aa1 Gay Fleming RN RN tw2 True Aragon Terrence, MD MD tw4 Corrections: (The following items were deleted from the chart) 08:16 06:33 Hospitalization Ordered by Brigitte Urrutia MD for Inpatient Admission. Preliminary dw diagnosis is Cellulitis of left lower limb; Hyperglycemia, unspecified. Bed requested for Telemetry/MedSurg (Inpatient). Status is Inpatient Admission. Condition is Stable. Problem is new. Symptoms have improved. UTI on Admission? No. tw4 08:45 08:16 04/13/2019 06:33 Hospitalization Ordered by Brigitte Urrutia MD for Inpatient bd Admission. Preliminary diagnosis is Cellulitis of left lower limb; Hyperglycemia, unspecified. Bed requested for Telemetry/MedSurg (Inpatient). Status is Inpatient Admission. Condition is Stable. Problem is new. Symptoms have improved. UTI on Admission? No. dw 10:03 08:45 04/13/2019 06:33 Hospitalization Ordered by oKrey Up MD for Inpatient tw2 Admission. Preliminary diagnosis is Cellulitis of left lower limb; Hyperglycemia, unspecified. Bed requested for Telemetry/MedSurg (Inpatient). Status is Inpatient Admission. Condition is Stable. Problem is new. Symptoms have improved. UTI on Admission? No. bd
--- NOTE | 2019-04-13 08:24 | RAD REPORT ---
EXAM DESCRIPTION: RAD - Foot Left 2 View - 04/13/2019 5:41 am CLINICAL HISTORY: Right first toe soft tissue swelling, soft tissue wound COMPARISON: None. FINDINGS: Soft tissues of the first toe are prominent however no air or foreign body seen. There are no erosive or destructive changes to the first toe. Elsewhere no acute bone or joint finding. No ashley ntar spur. IMPRESSION: Left first toe soft tissue swelling with no air or foreign body. No erosion of bone destructive changes seen.
[2019-04-13] MEDS ORDERED: D50W 25 GM/50 ML SYRINGE/VIAL IV PRN ×3 (10:14→13:12)
[2019-04-13] MEDS ORDERED: GLUCAGON 1 MG/VIAL IM PRN ×3 (10:14→13:12)
[2019-04-13] MEDS ORDERED: ONDANSETRON 4 MG/2 ML VIAL IV PRN (10:15)
[2019-04-13 10:35] VITALS: BMI 37.6
[2019-04-13] MEDS ORDERED: INSULIN -REGULAR HUMAN 50 UNIT/0.5 ML ML SQ SCH (11:30)
[2019-04-13 12:19] LABS: Urine Bacteria <20 /HPF (NONE SEEN); Urine Culture Reflex Order NOT NEEDED
[2019-04-13] MEDS ORDERED: MORPHINE 2 MG/ML SYR IV PRN (13:05)
[2019-04-13] MEDS ORDERED: LORAZEPAM 0.5 MG TABLET PO PRN (13:05)
[2019-04-13] MEDS ORDERED: Oxycodone HCl/Acetaminophen 1 TAB TAB PO PRN (13:05)
[2019-04-13] MEDS ORDERED: CEFEPIME 1 GM/10 ML SYR IV SCH (14:00)
[2019-04-13] MEDS ORDERED: VANCOMYCIN 1.25 GM in NA CHLORIDE 0.9% 250 ML IVPB SCH (14:00)
[2019-04-13] MEDS: CEFEPIME/SWI 1gm 10 ML IV SCH (14:26)
[2019-04-13] MEDS: GABAPENTIN 100 MG CAP PO SCH ×2 (14:26→20:04)
[2019-04-13] MEDS: VANCOMYCIN 2 GM in NA CHLORIDE 0.9% 500 ML IVPB SCH (14:26)
[2019-04-13] MEDS: INSULIN -REGULAR HUMAN 50 UNIT/0.5 ML ML SQ SCH ×2 (16:11→20:07)
[2019-04-13] MEDS: METFORMIN HCL 500 MG TAB PO SCH (16:11)
--- NOTE | 2019-04-13 18:47 | CON ---
History Of Present Illness: This is a 38-year-old male patient coming in with left foot big toe diab etic wound with cellulitis of the foot. Patient also has necrotic tissue developing in callus also n oted by him. Patient denies any headache, nausea, vomiting, chest pain, abdominal pain, constipation , diarrhea. His sugar has been running high. He has diabetes mellitus for more than 12 years, not v bruce well controlled. Past Medical History: Diabetes mellitus, diabetic neuropathy, hypertension. Medications: Include vancomycin. See MAR for other medication. Allergies: NO KNOWN DRUG ALLERGIES. Review of Systems: A 10-point review was performed. Physical Examination: General: This is a 38-year-old male, lying in bed. Family by th bedside. Not in any acute cardiopu lmonary distress. Vital Signs: Temperature 98, pulse 107, respirations 18, blood pressure 141/71. HEENT: Unremarkable. Neck: Supple. Small swelling and erythematous changes noted at the back of his head. Lungs: Clear to auscultation. Heart: S1, S2. Regular. Abdomen: Soft, nontender. Bowel sounds present. Extremities: Left foot with erythematous changes and necrotic tissue changes noted to the big toe in the medial aspect and a small callus was also noted. Laboratory Data: The patient has WBC of 9.9, hemoglobin 14, and platelets of 364. Chemistry shows s odium 131, potassium 3.8, chloride 94, bicarb 27, BUN 21, creatinine 1.2, glucose is 344. Hemoglobin A1c pending. Liver enzymes within normal limit. Albumin is 3.4. Microbiological Data: Blood cultures and wound cultures are pending. Assessment And Plan: 38-year-old male with significant amount of diabetic neuropathy and callus form ation, coming in with diabetic foot ulcer with necrotic changes to the big toe area with erythematous changes to the foot. No fevers. We will continue vancomycin and start patient on cefepime 1 g q.12 hours. Also, recommend to apply Maxorb Ag to the wound site until wound debridement is done. Patie nt to continue IV antibiotic and wound care. We will follow patient as needed. Thank you for consult. BRETT/RODRIGUEL Voice ID: [id number] Report ID: [id number]
[2019-04-13] MEDS: GUAIFENESIN/DM 5 ML UCUP PO PRN (20:04)
[2019-04-13] MEDS: GLIMEPIRIDE 2 MG TABLET PO SCH (20:05)
[2019-04-13] MEDS: INSULIN GLARGINE 100 UNITS/ML SQ SCH (20:06)
[2019-04-13] MEDS ORDERED: CEFEPIME 1 GM/VIAL IV SCH (21:00)
--- NOTE | 2019-04-14 | HP ---
Date of Admission: 04/13/2019 Presenting Complaint: Left great toe redness and swelling with pain. History Of Present Illness: A 38-year-old male with history of type 2 diabetes mellitus on oral hypo glycemic with Amaryl and metformin, presented to the hospital after he was having lesion in his left great toe. He has self lacerated the lesion after which the area became more reddish, swollen, as we ll as darkish. Patient presented because of new ulceration over the left great toe area. He admits to pain, worse on walking. He admit to regular diabetic control. He has been taking antibiotics at home with no benefit. He denies any fever or chills. On admission, he was noted with worsening necr otic left great toe ulcer and is being admitted for further workup. Past Medical History: Significant for, 1.Diabetes mellitus type 1. 2.Diabetic neuropathy. 3.Hypertension. Home Medications: Include Norvasc, Amaryl, metformin. Allergies: NO KNOWN DRUG ALLERGIES. Family History: No history of PVD or CAD. Social History: Patient denies any tobacco, alcohol, or illicit drug use. Review of Systems: All systems reviewed x14 were negative except as mentioned above. Physical Examination: Current Vitals: Blood pressure of 147/71, pulse of 107, respiratory rate of 18, O2 saturation 98 on room air, temperature 98.6. General: Very obese young male, sitting up in bed. Head: Atraumatic, normocephalic. Pupils equal and reactive to light. Neck: No JVD. No carotid bruit. Respiratory: Good air entry. No crepitation. Cardiovascular: S1, S2. Mildly tachycardic. No murmur. GI: Abdomen full, soft. Bowel sounds positive. Extremities: No pedal edema. No calf tenderness. Erythema with tenderness noted. Erythema noted o shwetha the cyst second left foot interdigit with necrotic ulcer on the lateral border of the left great toe. A darkish spot also noted, but no purulent discharge. Neuro: Patient is alert, oriented. Cranial nerves 2 through 12 grossly intact. Laboratory Data: Blood culture x2 pending. Wound culture also pending. WBC 9.8, neutrophils 75%, n o bands. Hemoglobin 14. Sodium 131, potassium 3.8, glucose of 289, repeat of 334. Lactic acid 1.5. AST alkaline phosphatase normal. Creatinine 1.22. Procalcitonin of 0.3. Urinalysis was negative except for 5-10 rbc. Impression: 1.Left grade 2 cellulitis with necrotic ulcer. 2.Diabetes mellitus, uncontrolled. 3.Hypertension. Plan: We will admit patient to inpatient status. We will consult Wound Care as well as surgery for possible debridement of the left great toe wound. We will start empirical antibiotics with Vanco. W e will do insulin sliding scale. We will resume home hypoglycemic regimen. We will obtain hemoglobi n A1c now and follow my need add the insulin for better diabetic coverage. We will resume Norvasc. We will do IV hydralazine p.r.n. We will do p.r.n. pain medication, subcutaneous Lovenox for DVT pro phylaxis, possible hospital stay for more than 2 days. DOMINICK/MODL Voice ID: [id number]
[2019-04-14] MEDS: VANCOMYCIN 2 GM in NA CHLORIDE 0.9% 500 ML IVPB SCH ×2 (01:06→14:40)
[2019-04-14] MEDS: CEFEPIME/SWI 1gm 10 ML IV SCH ×2 (01:06→14:39)
--- NOTE | 2019-04-14 03:26 | HP ---
Date of Admission: 04/13/2019 Chief Complaint: Pain, left foot. History Of Present Illness: A 38-year-old diabetic was brought to the emergency room with pain on th e left toe and left foot. He was found to have gangrenous cellulitis. The patient is admitted. The patient is a known diabetic on oral medication. No history of trauma to the foot. Past Medical History: Positive for type 2 diabetes and hypertension. Family History: Noncontributory. Personal History: Nonsmoker. Surgical History: Back surgery. Allergies: NONE. Home Medicines: Metformin, glimepiride, valsartan. Review of Systems: No history of chest pain or shortness of breath. Physical Examination: General: Revealed a 38-year-old obese male, afebrile. HEENT: Negative. Neck: Supple, JVD negative. Chest: Clear. Heart: Regular. Abdomen: Soft. Pendulous, nontender. Extremities: There is gangrene and cellulitis on the left fifth toe with lymphangitis. Pedal pulse is present. Laboratory Data: White count normal. Assessment: 1.Necrotizing cellulitis, left big toe. 2.Cellulitis, distal foot. 3.Lymphangitis. 4.Type 2 diabetes. 5.Hypertension. Plan: The patient is on IV antibiotics, and surgical consult has been done. SKIP/EILEEN Voice ID: [id number]
[2019-04-14 04:33] LABS: Albumin 2.7 g/dL (3.4-5.0); Bilirubin Total 0.5 mg/dL (0.2-1.0); Potassium 4.2 mmol/L (3.5-5.1); Protein, Total 6.6 g/dL (6.4-8.2)
[2019-04-14] MEDS ORDERED: INSULIN -REGULAR HUMAN 50 UNIT/0.5 ML ML SQ SCH (06:00)
[2019-04-14] MEDS: INSULIN -REGULAR HUMAN 50 UNIT/0.5 ML ML SQ SCH ×4 (07:30→20:17)
[2019-04-14] MEDS: HYDRALAZINE HCL 20 MG/ML VIAL IV PRN (07:45)
[2019-04-14] MEDS ORDERED: NA CHLORIDE 0.9% 1,000 ML ONE (07:56)
[2019-04-14] MEDS ORDERED: BUPIVACA 0.5%/EPI 0.0005%/PF 30 ML VIAL ONE (08:00)
[2019-04-14] MEDS: METFORMIN HCL 500 MG TAB PO SCH ×2 (08:00→16:30)
[2019-04-14] MEDS ORDERED: PROPOFOL 200 MG/20 ML VIAL IV ONE ×2 (08:06→08:57)
[2019-04-14] MEDS ORDERED: FENTANYL CITR 100 MCG/2 ML ONE (08:08)
[2019-04-14] MEDS ORDERED: LIDOCAINE 2% MPF 5 ML VIAL ONE (08:08)
[2019-04-14] MEDS ORDERED: MIDAZOLAM HCL 2 MG/2 ML INJ ONE (08:08)
[2019-04-14] MEDS ORDERED: ONDANSETRON 4 MG/2 ML VIAL ONE (08:10)
[2019-04-14] MEDS: ENOXAPARIN 40 MG/0.4 ML SQ SCH (08:56)
[2019-04-14] MEDS: GABAPENTIN 100 MG CAP PO SCH ×3 (08:56→20:16)
[2019-04-14] MEDS: AMLODIPINE 10 MG TAB PO SCH (08:57)
--- NOTE | 2019-04-14 09:13 | P.OP ---
Preoperative diagnosis: LEFT great toe infection Postoperative diagnosis: LEFT great toe infection Primary procedure: Excisional Debridement of LEFT great toe infection Anesthesia: GETA + Local Estimated blood loss: <2cc Specimen: Cultures, debridement tissue Findings: infection to tendons Complications: None Transferred to: Recovery Room Condition: Good
[2019-04-14] MEDS: GLIMEPIRIDE 2 MG TABLET PO SCH (20:16)
[2019-04-14] MEDS: INSULIN GLARGINE 100 UNITS/ML SQ SCH (20:17)
--- NOTE | 2019-04-14 20:22 | OP ---
Date of Procedure: 04/14/2019 Surgeon: Amadou Brown MD, Preoperative Diagnosis: Left great toe infection. Postoperative Diagnosis: Left great toe infection. Procedure Performed: Excisional debridement of left great toe infection. Anesthesia: Endotracheal plus local with 0.5% Marcaine with epinephrine. Estimated Blood Loss: Less than 2 mL. Specimen: Cultures and debridement tissue. Findings: Infection down to the tendons and extend to extensor hallucis longus. Complication: None. Condition: Transferred to recovery room in good condition. Procedure In Detail: After informed consent was obtained, patient was brought to the operating room, prepped and draped in the usual sterile fashion. After adequate anesthesia was achieved, an area of the medial aspect of the left great toe was circumscribed using a 15-blade scalpel down to subcutane ous tissues. The skin area was unroofed down to the subdermal layer exposing abscess and infected ne crotic tissue. This was all debrided using electrocautery and rongeur down, extending to the extenso r hallucis longus, which was partially removed at the midportion of the toe. The nail was left in pl kinjal as well as the infection did not extend down to the level of bone. The area was copiously irriga amadou until completely dry. Hemostasis was achieved with electrocautery and sterile dressing was place d over top. The patient tolerated the procedure well without evidence of complication and transferred to PACU in good condition. All counts were correct at the end of the case. KEREN/EILEEN Voice ID: [id number] Report ID: [id number]
[2019-04-14] MEDS: GUAIFENESIN/DM 5 ML UCUP PO PRN (20:29)
--- NOTE | 2019-04-14 23:19 | PN ---
The patient was afebrile overnight. The patient went to surgery for debridement and surgical excisio n of the necrotic material. Postoperatively, his vitals were reviewed. He is stable. Meanwhile, the patient will be continued on IV antibiotics. SKIP/EILEEN Voice ID: [id number] Report ID: [id number]
[2019-04-15] MEDS: VANCOMYCIN 2 GM in NA CHLORIDE 0.9% 500 ML IVPB SCH ×2 (01:37→13:20)
[2019-04-15] MEDS: CEFEPIME/SWI 1gm 10 ML IV SCH ×2 (01:37→14:00)
[2019-04-15] MEDS: INSULIN -REGULAR HUMAN 50 UNIT/0.5 ML ML SQ SCH ×4 (07:30→20:57)
[2019-04-15] MEDS: METFORMIN HCL 500 MG TAB PO SCH ×2 (08:09→17:07)
[2019-04-15] MEDS: GABAPENTIN 100 MG CAP PO SCH ×3 (08:10→20:56)
[2019-04-15] MEDS: AMLODIPINE 10 MG TAB PO SCH (08:10)
[2019-04-15 08:18] VITALS: O2SAT 96
[2019-04-15] MEDS: ENOXAPARIN 40 MG/0.4 ML SQ SCH (08:22)
[2019-04-15] MEDS ORDERED: COLLAGENASE 30 GM OINTMENT TOP SCH (09:00)
[2019-04-15] MEDS ORDERED: MEDIHONEY 44 ML TOPICAL TUBE TOP SCH (09:00)
[2019-04-15] MEDS: HYDRALAZINE HCL 20 MG/ML VIAL IV PRN (15:47)
[2019-04-15] MEDS: COLLAGENASE 30 GM OINTMENT TOP SCH (16:54)
[2019-04-15] MEDS: GLIMEPIRIDE 2 MG TABLET PO SCH (20:56)
[2019-04-15] MEDS: INSULIN GLARGINE 100 UNITS/ML SQ SCH (20:56)
--- NOTE | 2019-04-15 21:40 | PN ---
Subjective: Patient lying in bed, status post surgical debridement by surgical team. Patient is continuing to have swelling and redness of the foot. Objective: Vital Signs: Temperature 98, pulse 85, respirations 16, blood pressure 127/74. HEENT: Unremarkable. Lungs: Clear to auscultation. Heart: S1, S2. Regular. Abdomen: Soft, nontender. Bowel sounds present. Extremities: Right foot wound with 3.5 x 3 necrotic and slough noted. Also callus noted on the dorsal aspect of the toes. Laboratory Data: No new labs available. Current Medications: Cefepime and vancomycin. Assessment And Plan: Left foot diabetic foot ulcer, status post debridement. Patient is doing better. Continuing to have some cellulitis and necrotic changes. Recommend off loading. Also recommend to transfer patient to long- term acute care at [facility], where he can continue hyperbaric and IV antibiotic and wound management. NF/MODL Voice ID: [id number] Report ID: [id number] LIU
--- NOTE | 2019-04-15 21:56 | PN ---
The patient is doing well. He is afebrile. The lymphangitis has subsided. His cultures so far are negative. The patient is on vancomycin, which will be continued for now. I will discuss with the serge mir and Dr. Brown regarding further care. SKIP/EILEEN Voice ID: [id number] Report ID: [id number]
[2019-04-16] MEDS: VANCOMYCIN 2 GM in NA CHLORIDE 0.9% 500 ML IVPB SCH (01:43)
[2019-04-16] MEDS: CEFEPIME/SWI 1gm 10 ML IV SCH (01:44)
[2019-04-16] MEDS: INSULIN -REGULAR HUMAN 50 UNIT/0.5 ML ML SQ SCH (07:30)
[2019-04-16 08:48] VITALS: BP 172/96; TEMP 98.3
[2019-04-16] MEDS: ENOXAPARIN 40 MG/0.4 ML SQ SCH (09:00)
[2019-04-16] MEDS: GABAPENTIN 100 MG CAP PO SCH (09:29)
[2019-04-16] MEDS: AMLODIPINE 10 MG TAB PO SCH (09:29)
[2019-04-16] MEDS: METFORMIN HCL 500 MG TAB PO SCH (09:29)
[2019-04-16] MEDS: COLLAGENASE 30 GM OINTMENT TOP SCH (09:32)
[2019-04-16] MEDS ORDERED: H2O FOR IRR,STER 1,000 ML IRR SCH (21:00)
[2019-04-16] MEDS ORDERED: H2O FOR IRR,STER 1,000 ML IRR PRN (21:00)
[2019-04-16] MEDS ORDERED: SODIUM HYPOCHLORITE 0.5% 473 ML TOP SCH (21:00)
== END 2019-04-16 11:34 | disposition home or self-care (01) | DRG 624 ==
LOC: ER 04:39 → ERHOLD 07:20 → 4TH 09:37
PROVIDERS: ADMIT Internal Medicine; ATTEND Internal Medicine
PROC: 0LBW0ZZ Excision of Left Foot Tendon, Open Approach (ICD-10-PCS; principal; 2019-04-14 08:45)
DX: E11.621 Type 2 diabetes mellitus with foot ulcer (principal); L97.529 Non-pressure chronic ulcer of other part of left foot with unspecified severity; E11.40 Type 2 diabetes mellitus with diabetic neuropathy, unspecified; I10 Essential (primary) hypertension; L03.032 Cellulitis of left toe; E11.65 Type 2 diabetes mellitus with hyperglycemia; E66.9 Obesity, unspecified; Z68.37 Body mass index [BMI] 37.0-37.9, adult
CPT/HCPCS: 36415; 80048; 80053; 80076; 80202; 81015; 82947; 83036; 83605; 84145; 84484; 85025; 87040; 87070; 87075; 87077; 87186; 87205; 88304; 88305; 96374; 96375; 99285; J0360; J0692; J1650; J1815; J2250; J2405; J2543; J2704; J3010; J3590; J7030; J7040

== ENCOUNTER 2019-04-26 07:13 | Day surgery (SDC) | payer OTHER ==
[2019-04-26] MEDS ORDERED: NA CHLORIDE 0.9% 1,000 ML ONE ×2 (07:38→09:09)
[2019-04-26] MEDS ORDERED: BUPIVACAINE 0.25% PF 30 ML VIAL ONE (08:00)
[2019-04-26] MEDS ORDERED: FENTANYL CITR 100 MCG/2 ML ONE (08:19)
[2019-04-26] MEDS ORDERED: LIDOCAINE 2% MPF 5 ML VIAL ONE (08:19)
[2019-04-26] MEDS ORDERED: propofoL 200 MG/20 ML VIAL IV ONE (08:19)
[2019-04-26] MEDS ORDERED: MIDAZOLAM HCL 2 MG/2 ML INJ ONE (08:23)
[2019-04-26] MEDS ORDERED: ONDANSETRON 4 MG/2 ML VIAL ONE ×2 (08:24→11:45)
[2019-04-26] MEDS: CEFAZOLIN/SWI 1gm 1 GM/10 ML SYR ONE ×2 (08:35→08:36)
[2019-04-26] MEDS ORDERED: EPHEDRINE SULF 50 MG/ML VIAL ONE (09:14)
[2019-04-26] MEDS ORDERED: NS 0.9% VIAL 10 ML ONE (09:28)
--- NOTE | 2019-04-26 09:40 | P.OP ---
Preoperative diagnosis: LEFT Great Toe Necrosis Postoperative diagnosis: LEFT Great Toe Necrosis Primary procedure: Amputation of LEFT Halux Secondary procedure: Injection of Amniotic Tissue Graft Anesthesia: GETA Estimated blood loss: <2cc Specimen: LEFT hallux Findings: necrosis Complications: None Implants: Mimedix Amniofill injectable amniotic membrane Transferred to: Recovery Room Condition: Good
[2019-04-26] MEDS: HYDROMORPHONE HCL 1 MG/ML INJ ONE ×4 (10:08→10:25)
[2019-04-26] MEDS ORDERED: HYDROCODONE/APAP 5/325 MG TAB PO ONE (11:05)
[2019-04-26] MEDS ORDERED: HYDROCODONE/APAP 7.5/325 MG TAB ONE (11:06)
[2019-04-26] MEDS ORDERED: ONDANSETRON 4 MG/2 ML VIAL IV ONE (11:50)
[2019-04-26 13:26] VITALS: BP 185/86; TEMP 96.9; O2SAT 100
--- NOTE | 2019-04-26 20:33 | OP ---
Date of Procedure: 04/26/2019 Surgeon: Ed Brown MD, Preoperative Diagnosis: Left great toe necrosis. Postoperative Diagnosis: Left great toe necrosis. Procedure Performed: Amputation of left hallux. Secondary Procedure: Injection of amniotic tissue graft. Anesthesia: General endotracheal. Estimated Blood Loss: Less than 2 mL. Specimen: Left hallux. Findings: Necrosis extending to the bone. Implants: MiMedx AmnioFill injectable amniotic membrane. Disposition: Transferred to recovery room in good condition. Procedure In Detail: After informed consent was obtained, patient was brought to the operating room, prepped and draped in the usual sterile fashion. After adequate anesthesia was achieved, I demarcat ed an area of the left great hallux with a marking pen, demarcating on a dorsal flap for future closu re of this left great hallux, which had obvious infection and non-progression and nonhealing as such. After this was demarcated, a cutdown using a 15 blade down through subcutaneous tissues, and using electrocautery, dissected down to the level of the distal interphalangeal joint. I then ligated the structure and removed it and placed it on the back table. I then turned my attention to the proximal phalanx. I dissected circumferentially around using periosteal elevator back to the metatarsophalan geal joint. This was circumferentially dissected until I was able to dissect this and removed the en tire phalanx, sent off for pathologic examination. I thinned the flap, thinned on the dorsal aspect, and irrigated the area copiously until it was completely clean. Hemostasis was easily achieved with electrocautery. At this point, I then reapproximated the tissue and closed it with an interrupted 2 -0 nylon suture and used a vertical mattress suture as well. I then injected the amniotic membrane f rom the Mimedx AmnioFill injectable version into the wound with approximately 2 mL of saline mixed. A sterile dressing was then placed over top. Patient tolerated the procedure well without evidence o f complication and transferred to PACU in good condition. All counts were correct at the end of the case. KEREN/EILEEN Voice ID: [id number] Report ID: [id number]
== END 2019-04-26 12:30 | disposition home or self-care (01) ==
LOC: OR 07:13
PROVIDERS: ATTEND Surgery
PROC: 0Y6Q0Z0 Detachment at Left 1st Toe, Complete, Open Approach (ICD-10-PCS; principal; 2019-04-26 08:30)
DX: E11.621 Type 2 diabetes mellitus with foot ulcer (principal); L97.524 Non-pressure chronic ulcer of other part of left foot with necrosis of bone; I10 Essential (primary) hypertension
CPT/HCPCS: 28820; 82947 ×2; 88305; J2704; J2250; J3010; J1170 ×2; J0690; J7030 ×2; J2405 ×3

== ENCOUNTER 2025-01-27 17:42 | Emergency (ER) | payer OTHER, SELFPAY ==
[2025-01-27] MEDS ORDERED: MORPHINE 4 MG/ML SYR ONE ×2 (18:38→20:11)
[2025-01-27] MEDS ORDERED: METHOCARBAMOL 1,000 MG/10 ML VIAL ONE (18:38)
[2025-01-27] MEDS ORDERED: NA CHLORIDE 0.9% 1,000 ML ONE (18:39)
[2025-01-27] MEDS ORDERED: NA CHLORIDE 0.9% 100 ML ONE (18:39)
[2025-01-27 18:54] LABS: Absolute Lymphocytes (CBC) 3.2 K/uL (0.7-4.9); Hematocrit 38.2 % (39.6-49.0); Hemoglobin 13.1 g/dL (13.6-17.9); MCH 28.7 pg (27.0-35.0); MCHC 34.3 g/dL (32.0-36.0); MCV 83.8 fL (80-100); MPV 8.0 fL (7.6-11.3); Nucleated RBC Absolute Count 0.0 (0-0); Nucleated Red Blood Cells % 0.0 % (0-0); RBC Red Blood Cell Count 4.56 M/uL (4.33-5.43); White Blood Count 8.60 thou/uL (4.3-10.9)
[2025-01-27 19:01] LABS: PT Prothrombin Time 12.7 SECONDS (10-13.0); Protime INR 1.13
[2025-01-27 19:14] LABS: ALT/SGPT 33.0 U/L (16-61); AST/SGOT 26.0 U/L (15-37); Albumin 4.5 g/dL (3.4-5.0); Albumin/Globulin Ratio 1.2 (1.1-1.8); Alkaline Phosphatase 63.0 U/L (45-117); Anion Gap 11.1 mEq/L (5.0-15.0); BUN Blood Urea Nitrogen 31.0 mg/dL (7-18); Bilirubin Indirect, Calculated 0.8 mg/dL (0.2-0.8); Globulin 3.7 g/dL (2.3-3.5); Glucose Level 96.0 mg/dL (74-106); Magnesium 2.4 mg/dL (1.6-2.4); NT PRO-BNP 22.0 pg/mL (<125); Potassium 4.1 mEq/L (3.5-5.1); Troponin High Sensitivity 5.2 pg/mL (<58.9)
--- NOTE | 2025-01-27 19:33 | RAD REPORT ---
EXAMINATION: ONE VIEW CHEST XR CLINICAL INDICATION: left shoulder/back pain TECHNIQUE: Frontal chest projection is submitted. Examination is limited by patient positioning and t echnique. COMPARISON: 12/04/2018 FINDINGS: The lungs are well inflated and clear. The heart is normal in size. No displaced fractures identified . IMPRESSION: No acute intrathoracic abnormalities.
[2025-01-27] MEDS ORDERED: HYDRALAZINE HCL 20 MG/ML VIAL ONE (20:11)
[2025-01-27] MEDS ORDERED: AMLODIPINE 10 MG TAB ONE (20:11)
--- NOTE | 2025-01-27 21:52 | RAD REPORT ---
EXAMINATION: CTA CHEST PE CLINICAL INDICATION: upper back pain TECHNIQUE: This examination was performed according to an angiographic protocol with 3D post-processi ng. This involves 3D reconstructions, MIPs, volume rendered images and/or shaded surface rendering. One or more of the following dose reduction techniques were used: Automated exposure control, adjustm ent of the mA and/or kV according to patient size, and/or iterative reconstruction. Unless otherwise specified, incidental findings do not require dedicated imaging follow-up. COMPARISON: No prior exam. FINDINGS: PULMONARY ARTERIES: Normal caliber. No evidence of pulmonary emboli to the subsegmental level. THORACIC AORTA: Normal caliber and configuration. LUNGS: No evidence of airspace or interstitial process. No nodules. PLEURA: No pleural effusion. No pneumothorax. MEDIASTINUM AND LYMPH NODES: No mediastinal mass or fluid collection. Normal size mediastinal, hilar, and axillary lymph nodes. OSSEOUS STRUCTURES AND CHEST WALL: Intact. UPPER ABDOMEN: Gallbladder distention. IMPRESSION: No evidence of pulmonary emboli to the subsegmental level.
[2025-01-27] MEDS ORDERED: KETOROLAC 30 MG/ML INJ ONE (22:13)
[2025-01-27] MEDS ORDERED: HYDROCODONE/APAP 7.5/325 MG TAB ONE (22:13)
--- NOTE | 2025-01-27 22:24 | EDPHYS ---
Physician Documentation [facility] Name: Yuniel Adkins Age: 44 yrs Sex: Male : 1980 Arrival Date: 01/27/2025 Time: 17:42 Bed 24 Private MD: ED Physician Edilson Urias HPI: 01/27 18:20 This 44 yrs old Male presents to ER via Ambulatory with complaints of Neck and Upper cp Back Pain, Shoulder Pain. 18:20 The patient or guardian complains of pain. The symptoms are located left lateral neck. cp Onset: The symptoms/episode began/occurred for years, became worse after waking up several days ago. denies injury. 18:20 Associated signs and symptoms: Pertinent positives: left upper back and posterior cp shoulder pain, Pertinent negatives: fever, headache, numbness. Modifying factors: the symptoms are aggravated by movement. Severity of symptoms: in the emergency department the symptoms are unchanged, despite home interventions. 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 - Infectious Disease History:: Denies. - Social history:: Smoking status: Patient denies any tobacco usage or history of. ROS: 18:25 Neck: Positive for pain with movement, pain at rest, stiffness, of the left lateral cp neck, 18:25 Back: Positive for pain at rest, pain with movement, of the left trapezius and left cp scapular area, 18:25 Eyes: Negative for injury, pain, redness, and discharge, cp 18:25 Constitutional: Negative for body aches, chills, fever, poor PO intake, 18:25 ENT: Negative for drainage from ear(s), ear pain, sore throat, difficulty swallowing, difficulty handling secretions, 18:25 Cardiovascular: Negative for chest pain, edema, palpitations, 18:25 Respiratory: Negative for cough, shortness of breath, wheezing, 18:25 Abdomen/GI: Negative for abdominal pain, vomiting, diarrhea, constipation, 18:25 Neuro: Negative for altered mental status, headache, numbness, weakness, 18:25 All other systems are negative, cp Exam: 18:30 Constitutional: The patient appears in no acute distress, alert, awake, cp non-diaphoretic, non-toxic, well developed, well nourished, uncomfortable, 18:30 Head/Face: Normocephalic, atraumatic. cp 18:30 Eyes: Periorbital structures: appear normal, Conjunctiva: normal, no exudate, no injection, Sclera: no appreciated abnormality, Lids and lashes: appear normal, bilaterally, 18:30 ENT: External ear(s): are unremarkable, Nose: is normal, Mouth: Lips: moist, Oral mucosa: moist, Posterior pharynx: Airway: no evidence of obstruction, patent, 18:30 Neck: ROM/movement: pain, that is severe, with rotation to the left, limited range of motion, that is moderate, when rotating to the left, Meningeal signs: are not present, 18:30 Chest/axilla: Inspection: normal, Palpation: is normal, no crepitus, no tenderness, 18:30 Cardiovascular: Rate: tachycardic, Rhythm: regular, Edema: is not appreciated, JVD: is not appreciated, 18:30 Respiratory: the patient does not display signs of respiratory distress, Respirations: normal, no use of accessory muscles, no retractions, labored breathing, is not present, Breath sounds: are clear throughout, no decreased breath sounds, no stridor, no wheezing, 18:30 Abdomen/GI: Inspection: abdomen appears normal, Palpation: abdomen is soft and non-tender, in all quadrants, 18:30 Musculoskeletal/extremity: Extremities: noted in the posterior aspect of left shoulder and left scapular area and left trapezius: pain, ROM: limited passive range of motion due to pain, in the left shoulder, Pulses: noted to be 2+ in the left radial artery, the left hand and left arm Sensation intact. 18:30 Skin: cellulitis, is not appreciated, no rash present. 18:30 Neuro: Orientation: to person, place \T\ time. Mentation: is normal, 18:48 ECG was reviewed by the Attending Physician. Vital Signs: 17:57 BP 207 / 105; Pulse 113; Resp 18; Temp 98.2; Pulse Ox 100% ; Weight 88.45 kg; Height 5 me1 ft. 11 in. ; Pain 10/10; 19:46 BP 190 / 98; Pulse 105; Resp 16; Pulse Ox 100% on R/A; jb4 20:41 BP 164 / 88; Pulse 104; Resp 16; Pulse Ox 100% on R/A; jb4 21:57 BP 164 / 98; Pulse 109; Resp 18; Pulse Ox 100% on R/A; jb4 17:57 Body Mass Index 27.20 (88.45 kg, 180.34 cm) me1 17:57 Pain Scale: Adult me1 MDM: 17:57 Medical Screening Exam initiated cp 22:22 Data reviewed: vital signs, nurses notes, lab test result(s), EKG, radiologic studies, cp CT scan, plain films, and as a result, I will discharge patient. 22:22 Differential diagnosis: Cervical Disc Herniation Cervical Raiculopathy Cervical cp Spondylosis cervical strain, Thoracic Outlet Syndrome torticollis. I considered the following discharge prescriptions or medication management in the emergency department Medications were administered in the Emergency Department. See MAR. Independent interpretation of the following test(s) in the Emergency Department EKG: See my EKG interpretation above. Test considered but Not performed: MRI: neck. Care significantly affected by the following chronic conditions: Diabetes, Hypertension. Counseling: I had a detailed discussion with the patient and/or guardian regarding the historical points, exam findings, and any diagnostic results supporting the discharge/admit diagnosis, lab results, radiology results, to return to the emergency department if symptoms worsen or persist or if there are any questions or concerns that arise at home. Response to treatment: the patient's symptoms have mildly improved after treatment, and as a result, I will discharge patient. 01/27 18:16 Order name: Basic Metabolic Panel; Complete Time: 19:33 cp 01/27 19:33 Interpretation: Normal except: BUN 31; GFR 80. cp 01/27 18:16 Order name: CBC with Diff; Complete Time: 19:33 cp 01/27 19:34 Interpretation: Normal except: HGB 13.1; HCT 38.2. cp 01/27 18:16 Order name: LFT's; Complete Time: 19:33 cp 01/27 18:16 Order name: Magnesium; Complete Time: 19:33 cp 01/27 18:16 Order name: NT PRO-BNP; Complete Time: 19:33 cp 01/27 18:16 Order name: PT-INR; Complete Time: 19:33 cp 01/27 18:16 Order name: Troponin HS; Complete Time: 19:33 cp 01/27 19:15 Order name: Glucose, Ancillary Testing; Complete Time: 19:33 EDMS 01/27 19:35 Order name: D-Dimer cp 01/27 18:16 Order name: XRAY Chest (1 view); Complete Time: 19:34 cp 01/27 19:34 Interpretation: Report review. 01/27 21:00 Order name: CT Chest For PE Angio; Complete Time: 22:06 cp 01/27 18:16 Order name: EKG; Complete Time: 18:16 cp 01/27 18:16 Order name: Cardiac monitoring; Complete Time: 18:53 cp 01/27 18:16 Order name: EKG - Nurse/Tech; Complete Time: 18:53 cp 01/27 18:16 Order name: IV Saline Lock; Complete Time: 18:35 cp 01/27 18:16 Order name: Labs collected and sent; Complete Time: 18:35 cp 01/27 18:16 Order name: O2 Per Protocol; Complete Time: 18:35 cp 01/27 18:16 Order name: O2 Sat Monitoring; Complete Time: 18:35 cp 01/27 18:17 Order name: Accucheck Blood Glucose; Complete Time: 18:34 cp EC:48 Rate is 108 beats/min. Rhythm is regular. FL interval is normal. QRS interval is cp normal. QT interval is normal. T waves are Inverted in lead aVL. Interpreted by me. Reviewed by me. Administered Medications: 18:51 Drug: Methocarbamol IVPB 1 grams IVPB once over 1 hrs; (mix in NS 100 mL) Route: IVPB; jb4 Infused Over: 1 hrs; Site: right forearm; 19:51 Follow up: Response: No adverse reaction; Marked relief of symptoms; Pain is decreased; jb4 IV Status: Completed infusion; IV Intake: 100ml 18:51 Drug: morphine IVP or IV 4 mg IVP once over 4 mins Route: IVP; Infused Over: 4 mins; jb4 Site: right forearm; 19:45 Follow up: Response: No adverse reaction; No change in condition; Pain is unchanged, jb4 physician notified; RASS: Alert and Calm (0) 18:52 Drug: NS 0.9% IV 1000 ml IV at 1000 ml once; to be given as a bolus over 60 minutes jb4 Route: IV; Rate: 1000 ml; Site: right forearm; 20:18 Drug: hydrALAZINE IVP 10 mg IVP once Route: IVP; Site: right forearm; jb4 22:21 Follow up: Response: No adverse reaction; Marked relief of symptoms jb4 20:18 Drug: amLODIPine PO 10 mg PO once Route: PO; jb4 22:21 Follow up: Response: No adverse reaction; Marked relief of symptoms jb4 20:19 Drug: morphine IVP or IV 4 mg IVP once over 4 mins Route: IVP; Infused Over: 4 mins; jb4 Site: right forearm; 22:21 Follow up: Response: No adverse reaction; Marked relief of symptoms; Pain is decreased; jb4 RASS: Alert and Calm (0) 22:09 CANCELLED (Physician Discretion): [id number] mg IVP once cp 22:21 Drug: Hydrocodone-Acetaminophen PO (7.5 mg-325 mg) 1 tabs PO once; RASS on ADMIN: jb4 Combtv4, Very Agttd3, Agttd2, Rstlss1, AlertClm0, Drwsy-1, Lt Sdtn-2, Mod Sdtn-3, Dp Sdtn-4, UnArsble-5 Route: PO; 22:21 Drug: Ketorolac IVP 15 mg IVP once Route: IVP; Site: right forearm; jb4 Disposition Summary: 01/27/25 22:23 Discharge Ordered Notes: Location: Home cp Problem: new cp Symptoms: have improved cp Condition: Stable cp Diagnosis - Cervicalgia cp - Dorsalgia, unspecified cp Followup: cp - With: Private Physician - When: 2 - 3 days - Reason: Recheck today's complaints Discharge Instructions: - Discharge Summary Sheet cp - Acute Back Pain, Adult cp - Musculoskeletal Pain cp - Heat Therapy cp - Neck Exercises cp - Back Exercises cp Forms: - Medication Reconciliation Form cp - Antibiotic Education cp - Prescription Opioid Use cp - Patient Portal Instructions cp - Leadership Thank You Letter cp Prescriptions: - Diclofenac Sodium 75 mg Oral Tablet Sustained Release - take 1 tablet ORAL route 2 times per day; 30 tablet; Refills: 0, Product cp Selection Permitted - methocarbamol 750 mg Oral tablet - take 1 tablet ORAL route 3 times per day; 30 tablet; Refills: 0, Product cp Selection Permitted Addendum: 01/29/2025 07:04 Co-signature as Attending Physician, Edilson Urias MD I reviewed the patient's care r n provided by the Advanced Practice Provider and agree with the diagnosis and treatment plan. Signatures: Dispatcher [employer] EDEdilson Juarez MD MD rn Henrique Dhaliwal, PA-C PAOliviaC Stan Kaur RN RN jb4 Delores Magallon RN RN me1 Corrections: (The following items were deleted from the chart) 01/27 22:09 22:09 Ketorolac IVP 30 mg IVP once ordered. cp cp
--- NOTE | 2025-01-27 22:24 | ER ---
Nurse's Notes [facility] Name: Yuniel Adkins Age: 44 yrs Sex: Male : 1980 Arrival Date: 01/27/2025 Time: 17:42 Bed 24 Private MD: Diagnosis: Cervicalgia;Dorsalgia, unspecified Presentation: 01/27 17:57 Chief complaint: Patient states: c/o left posterior and anterior shoulder pain that me1 radiates up the left neck and down the left arm. Pain is sharp, 10/10. Has had this pain intermittently for years and it has been bothering him for a while but today it is worse and unbearable. Coronavirus screen: Vaccine status: Patient reports being unvaccinated. Ebola Screen: No symptoms or risks identified at this time. Initial Sepsis Screen: Does the patient meet any 2 criteria? HR > 90 bpm. Does the patient have a suspected source of infection? No. Patient's initial sepsis screen is negative. Risk Assessment: Do you want to hurt yourself or someone else? Patient reports no desire to harm self or others. Onset of symptoms is unknown. 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 - Infectious Disease History:: Denies. - Social history:: Smoking status: Patient denies any tobacco usage or history of. Screenin:22 [facility] ED Fall Risk Assessment (Adult) History of falling in the last 3 months, jb4 including since admission No falls in past 3 months (0 pts) Confusion or Disorientation No (0 pts) Intoxicated or Sedated No (0 pts) Impaired Gait No (0 pts) Mobility Assist Device Used No (0 pt) Altered Elimination No (0 pt) Score/Fall Risk Level 0 - 2 = Low Risk Oriented to surroundings, Maintained a safe environment. Abuse screen: Denies threats or abuse. Nutritional screening: No deficits noted. Tuberculosis screening: No symptoms or risk factors identified. Assessment: 18:00 General: Appears in no apparent distress. uncomfortable, Behavior is calm, cooperative, jb4 restless. Pain: Complains of pain in posterior cervical area, left trapezius, left scapular area and posterior aspect of left shoulder Pain does not radiate. Pain currently is 10 out of 10 on a pain scale. Neuro: Level of Consciousness is awake, alert, obeys commands, Oriented to person, place, time, situation. Cardiovascular: Patient's skin is warm and dry. Respiratory: Airway is patent Respiratory effort is even, unlabored, Respiratory pattern is regular, symmetrical. Derm: Skin is intact, Skin is pink, warm \T\ dry. Musculoskeletal: Circulation, motion, and sensation intact. Range of motion: intact in all extremities. 19:00 Reassessment: Patient appears in no apparent distress at this time. Patient and/or jb4 family updated on plan of care and expected duration. Pain level reassessed. Patient is alert, oriented x 3, equal unlabored respirations, skin warm/dry/pink. 20:22 Reassessment: Patient appears in no apparent distress at this time. Patient and/or jb4 family updated on plan of care and expected duration. Pain level reassessed. Patient is alert, oriented x 3, equal unlabored respirations, skin warm/dry/pink. Patient states feeling better. Patient states symptoms have improved. 21:57 Reassessment: Patient appears in no apparent distress at this time. Patient and/or jb4 family updated on plan of care and expected duration. Pain level reassessed. Patient is alert, oriented x 3, equal unlabored respirations, skin warm/dry/pink. 22:51 Reassessment: Patient appears in no apparent distress at this time. Patient and/or jb4 family updated on plan of care and expected duration. Pain level reassessed. Patient is alert, oriented x 3, equal unlabored respirations, skin warm/dry/pink. Vital Signs: 17:57 BP 207 / 105; Pulse 113; Resp 18; Temp 98.2; Pulse Ox 100% ; Weight 88.45 kg; Height 5 me1 ft. 11 in. ; Pain 10/10; 19:46 BP 190 / 98; Pulse 105; Resp 16; Pulse Ox 100% on R/A; jb4 20:41 BP 164 / 88; Pulse 104; Resp 16; Pulse Ox 100% on R/A; jb4 21:57 BP 164 / 98; Pulse 109; Resp 18; Pulse Ox 100% on R/A; jb4 17:57 Body Mass Index 27.20 (88.45 kg, 180.34 cm) me1 17:57 Pain Scale: Adult me1 ED Course: 17:45 Patient arrived in ED. cj3 17:46 Henrique Dhaliwal PA-C is PHCP. cp 17:46 Edilson Urias MD is Attending Physician. cp 18:00 Triage completed. me1 18:00 Arm band placed on Patient placed in an exam room. me1 18:08 Stan Jules, JAKE is Primary Nurse. jb4 18:58 XRAY Chest (1 view) In Process Unspecified. EDMS 20:22 Patient has correct armband on for positive identification. Bed in low position. Call jb4 light in reach. Side rails up X 1. Provided Education on: PLAN OF CARE. 21:39 CT Chest For PE Angio In Process Unspecified. EDMS 22:51 No provider procedures requiring assistance completed. IV discontinued, intact, jb4 bleeding controlled, No redness/swelling at site. Pressure dressing applied. Administered Medications: 18:51 Drug: Methocarbamol IVPB 1 grams IVPB once over 1 hrs; (mix in NS 100 mL) Route: IVPB; jb4 Infused Over: 1 hrs; Site: right forearm; 19:51 Follow up: Response: No adverse reaction; Marked relief of symptoms; Pain is decreased; jb4 IV Status: Completed infusion; IV Intake: 100ml 18:51 Drug: morphine IVP or IV 4 mg IVP once over 4 mins Route: IVP; Infused Over: 4 mins; jb4 Site: right forearm; 19:45 Follow up: Response: No adverse reaction; No change in condition; Pain is unchanged, jb4 physician notified; RASS: Alert and Calm (0) 18:52 Drug: NS 0.9% IV 1000 ml IV at 1000 ml once; to be given as a bolus over 60 minutes jb4 Route: IV; Rate: 1000 ml; Site: right forearm; 20:18 Drug: hydrALAZINE IVP 10 mg IVP once Route: IVP; Site: right forearm; jb4 22:21 Follow up: Response: No adverse reaction; Marked relief of symptoms jb4 20:18 Drug: amLODIPine PO 10 mg PO once Route: PO; jb4 22:21 Follow up: Response: No adverse reaction; Marked relief of symptoms jb4 20:19 Drug: morphine IVP or IV 4 mg IVP once over 4 mins Route: IVP; Infused Over: 4 mins; jb4 Site: right forearm; 22:21 Follow up: Response: No adverse reaction; Marked relief of symptoms; Pain is decreased; jb4 RASS: Alert and Calm (0) 22:09 CANCELLED (Physician Discretion): [id number] mg IVP once cp 22:21 Drug: Hydrocodone-Acetaminophen PO (7.5 mg-325 mg) 1 tabs PO once; RASS on ADMIN: jb4 Combtv4, Very Agttd3, Agttd2, Rstlss1, AlertClm0, Drwsy-1, Lt Sdtn-2, Mod Sdtn-3, Dp Sdtn-4, UnArsble-5 Route: PO; 22:21 Drug: Ketorolac IVP 15 mg IVP once Route: IVP; Site: right forearm; jb4 Medication: 22:51 VIS not applicable for this client. jb4 Intake: 19:51 IV: 100ml; Total: 100ml. jb4 Outcome: 22:23 Discharge ordered by MD. cp 22:51 Discharged to home ambulatory, with family, jb4 22:51 Condition: stable 22:51 Discharge instructions given to patient, Instructed on discharge instructions, follow up and referral plans. no drinking with medication, no driving heavy equipment, medication usage, Demonstrated understanding of instructions, follow-up care, medications, Prescriptions given X 2, 22:51 Patient left the ED. jb4 Signatures: Dispatcher [facility] Henrique Dhaliwal PA-C PA-C cp Bryson, James RN RN jb4 Delores Magallon RN RN me1 Bettye Richmond cj3 Corrections: (The following items were deleted from the chart) 20:22 20:00 Reassessment: Patient appears in no apparent distress at this time. Patient jb4 and/or family updated on plan of care and expected duration. Pain level reassessed. Patient is alert, oriented x 3, equal unlabored respirations, skin warm/dry/pink. jb4 20:27 19:50 Response: No adverse reaction; No change in condition; Pain is unchanged, jb4 physician notified; RASS: Alert and Calm (0) jb4
[2025-01-27 23:12] VITALS: TEMP 98.2; O2SAT 100
[2025-01-27 23:16] VITALS: BP 164/98
== END 2025-01-27 22:51 | disposition home or self-care (01) ==
LOC: ER 17:42
DX: M54.2 Cervicalgia (principal); M54.9 Dorsalgia, unspecified
CPT/HCPCS: 36415; 71045; 71275; 80048; 80076; 82947; 83735; 83880; 84484; 85025; 85379; 85610; 93005; 96365; 96375; 99284; J0360; J1885; J2800; J7030; Q9967